=== PATIENT | male | born 1950 | race Caucasian/White ===

== ENCOUNTER 2016-12-13 17:37 | Inpatient (IN) | payer MEDICARE, OTHER ==
[2016-12-13 18:19] LABS: Hematocrit 45.4 % (42.0-52.0); Hemoglobin 14.8 gm/dL (13.5-18.0); Mean Cell Volume 92.5 fl (78-100); Mean Corpuscular Hemoglobin 30.1 pg (27-31); Mean Corpuscular Hgb Conc 32.6 g/dl (32-36); Mean Platelet Volume 10.5 fl (6.0-9.5); Neutrophil # 16.4 K/mm3 (1.3-6.0); Neutrophil % 86.1 % (42-75.0); Platelet Count 167 K/mm3 (150-450); Red Blood Count 4.91 M/mm3 (4.7-6.0); Red Cell Distribution Width 14.6 % (11.5-14.0); White Blood Count 19.1 K/mm3 (4.0-10.5)
[2016-12-13 18:26] LABS: Total Cells Counted 100
[2016-12-13 18:30] LABS: Albumin * 3.3 gm/dl (3.4-5.0); Anion Gap 11.5 mmol/L (6.8-13.8); BUN/Creatinine Ratio 17.6 (9.0-21.6); Bilirubin, Total 0.5 mg/dL (0.0-1.1); Ca. Corrected For Albumin 9.5 mg/dL (8.4-10.2); Calcium * 9.3 mg/dL (7.9-10.9); Carbon Dioxide 29.5 mmol/L (24-32.6); Total Protein 7.7 gm/dL (6.2-8.2)
--- NOTE | 2016-12-13 18:48 | ERNOTE ---
Neuro HPI ER Record Date of Service: 12/13/16 Time Seen by Provider: 12/13/16 18:40 Source: EMS, senior living records Exam Limitations: clinical condition, dementia Immunizations: IMMUNIZATION HX Immunizations Up to Date Yes History of Influenza Vaccine Yes Hx Pneumococcal Vaccination Yes Allergies/Adverse Reactions: Allergies Allergy/AdvReac Type Severity Reaction Status Date / Time No Known Allergies Allergy Verified 05/06/15 22:11 Home Medications: HOME MEDICATIONS Acetaminophen [Tylenol] 650 mg PO QID PRN 05/08/15 [Last Taken Unknown] Amlodipine Besylate/Benazepril [Lotrel 5-20 mg Capsule] 1 cap PO DAILY 05/08/15 [Last Taken Unknown] Dextran 70/Hypromellose/Pf [Artificial Tears Drops] 1 each OP QID 05/08/15 [ Last Taken 05/07/15] Docusate Sodium [Doc-Q-Lace] 100 mg PO BID 05/08/15 [Last Taken 05/06/15] Ibuprofen [Motrin] 400 mg PO BID 05/08/15 [Last Taken 05/06/15] Ibuprofen [Motrin] 800 mg PO Q8H PRN 05/08/15 [Last Taken Unknown] Ipratropium/Albuterol Sulfate [Combivent Respimat Inhal [place]] 1 puff IH QID 05/14 [Last Taken 05/06/15] Metoprolol Succinate [Toprol Xl] 200 mg PO Q12H 05/08/15 [Last Taken 05/06/15] Nystatin [Mycostatin Powder] 1 appl TP TID 05/08/15 [Last Taken Unknown] Polyethylene Glycol 3350 [Miralax] 17 gm PO DAILY 05/08/15 [Last Taken 05/06/15] Rosuvastatin Calcium [Crestor] 40 mg PO DAILY 05/08/15 [Last Taken 05/06/15] glipiZIDE [Glucotrol] 5 mg PO BID 05/08/15 [Last Taken 05/06/15] metFORMIN HCL [Glucophage] 1,000 mg PO BIDWM 05/08/15 [Last Taken 05/06/15] risperiDONE MICROSPHERES [Risperdal Consta] 25 mg IM Q14D 05/08/15 [Last Taken 05/02/15] Finasteride [Proscar] 5 mg PO DAILY 12/13/16 [Last Taken Unknown] - History of Present Illness Narrative: PT SENT HERE FROM [place] FOR FEVER AND AMS. HIS ROOM MATE WAS JUST ADMITTED HERE EARLIER TODAY FOR PAIN CONTROL AND COMFORT CARE- NOT OF AN ACUTE ILLNESS. this pt reportedly had a fever of 103.5 AND GIVEN APAP , 650 MG AT 1130. HE ARRIVES HERE [place] . [place] REPORTS THAT HE WAS DIAPHORETIC. HE IS NOT A HISTORIAN GIVEN HE HAS SHIZOPHRENIA AND VASCULAR DEMENTIA. PT SAYS HE IS HUNGRY AND WANTS A CIGARETTE AND HAS NO PAIN OR OTHER COMPLAINTS. HE IS NOT ORIENTED. Review of Systems - Review of Systems Constitutional: Present: See HPI All Other Systems: All systems neg except as marked - PT IS NOT A RELIABLE HISTORIAN GIVEN HIS DEMENTIA AND MENTAL ILLNESS. - Patient's Past Medical History Patient History - Medical: Diabetes Type 2, Dementia, Obesity, Other - SHIZOPHRENIA Patient History - Cardiac/Respiratory: Hypertension Patient History - Cancer: No Hx of Cancer Patient History - Surgical Procedures: Total Hip Replacement, Other - Social History Living Situations: senior living Smoking Status: Unknown if ever smoked Alcohol Use: none Drug Use: none - Immunizations Immunizations Up to Date: Yes Hx Pneumococcal Vaccination: Yes History of Influenza Vaccine: Yes Physical Exam - Physical Exam General Appearance: Present: wd/wn, alert - BUT NOT ORIENTED. JUST WANTS TO SLEEP AND UPSET IF I DISTURB HIM . , no apparent distress, other - OBESE SNORING MAN WITH NO FEVER AT PRESENT. O2 SATS AT 92 ON 2 L. Eye Exam: Normal inspection: bilateral Ears, Nose, Throat: Present: normal except -, dry mucous membranes Neck: Present: normal inspection, nontender Respiratory: Present: no respiratory distress, normal breath sounds, no accessory muscle use, chest nontender, lungs clear Cardiovascular/Chest: Present: regular rate, rhythm, no murmur, normal peripheral pulses Gastrointestinal/Abdominal: Present: normal bowel sounds, nontender, soft, no organomegaly, distended - LARGE OBESE ABDOMEN Back Exam: Present: normal inspection, no CVA tenderness, no vertebral tenderness Neurological Exam: Present: alert, no motor/sensory deficits, disoriented to person, disoriented to time, disoriented to place, disoriented to situation Skin Exam: Present: normal color, warm/dry Lymphatic Exam: Present: no adenopathy Darby Coma Scale - Assess Eye Opening: Spontaneous Motor: Obeys Commands Verbal: Confused - Total Coma Scale Total: 14 ED Progress - Results and Orders Patient's Lab Results:: I have reviewed the patient's lab results. Results and Orders: WBC = 19k WITH 86 SEGS, BMP NL EXCEPT GLUC = 186, LFT = NL.LACTIC IA 1.9. URINE IS + WITH > 50 RBC AND WBC AND 4 + BACTERIA. CXR = NO ACUTE CHANGE. - Vital Signs Patient's Vital Signs:: I have reviewed the patient's vital signs. Vital Signs: Vital Signs 12/13/16 17:40 Temperature 37.2 C Pulse Rate 91 Respiratory 32 H Rate O2 Sat by Pulse 92 Oximetry - EKG EKG: NSR, unchanged from - 05/06/2015 EKG read: Interp. by me - X-Ray X-Ray #1 X-Ray: chest Interpretation: Reviewed by me - NO CHANGE FROM OLD CXR. - CT/Ultrasound CT/Ultrasound Narrative: CT HEAD = NO ACUTE CHANGES / RAD. - Progress/Reassessment Chief Complaint: Altered Mental Status Plan - Plan Plan: CALLED DR POLO. SHE WILL CALL BACK, ABOUT ADMISSION. HIS LAST UTI IN 2014 WAS ECOLI SENSITIVE TO ROCEPHIN AMONG OTHERS. D/W CHRIST , SHE WILL ADMIT Departure Clinical Impression: UTI (urinary tract infection) Qualifiers: Urinary tract infection type: site unspecified Hematuria presence: with hematuria Qualified Code(s): N39.0 - Urinary tract infection, site not specified ; R31.9 - Hematuria, unspecified Altered mental status, unspecified Qualifiers: Altered mental status type: unspecified Qualified Code(s): R41.82 - Altered mental status, unspecified - Departure Referrals: Segun Lee MD [Primary Care Provider] -
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
[2016-12-13 18:58] LABS: Band 2 % (0-2.0); Lymphocyte 1 % (20-51); Monocyte 7 % (0-9); Neutrophil 90 % (42-75); Neutrophil # 17.2 K/mm3 (1.3-6.0)
[2016-12-13 19:00] LABS: Platelet Estimate Normal (NORMAL); RBC Morphology Normal (NORMAL)
[2016-12-13 19:30] LABS: Urine Appearance Cloudy; Urine Color Yellow
[2016-12-13 19:32] LABS: Urine Bilirubin Negative (NEGATIVE); Urine Blood 150 /ul (NEGATIVE); Urine Ketone Negative (NEGATIVE)
[2016-12-13 19:33] LABS: Urine Bacteria 4+; Urine Nitrite Positive (NEGATIVE); Urine Protein 100 mg/dL (NEGATIVE); Urine RBC >50 /hpf (0-5); Urine Urobilinogen Normal (NORMAL); Urine WBC >50 /hpf (0-5)
--- OUTSIDE RECORDS SUMMARY | 2016-12-13 20:45 | XMS REPORT | Continuity of Care Document ---
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
[2016-12-13] MEDS ORDERED: ACETAMINOPHEN 325 MG TABLET PO PRN (23:16)
[2016-12-13] MEDS ORDERED: IBUPROFEN 800 MG TABLET PO PRN (23:16)
[2016-12-13] MEDS ORDERED: METOPROLOL SUCCINATE 200 MG TABLET.SA PO SCH (23:30)
[2016-12-13] MEDS ORDERED: RISPERIDONE MICROSPHERES 25 MG IM SCH (23:30)
--- NOTE | 2016-12-13 23:44 | HP ---
Chief Complaint - Chief Complaint Date of Service: 12/13/16 Time of Service: 22:00 Chief Complaint: Fever, altered mental status History of Present Illness: 66 years old male adm to the hospital from [facility], with reports of fever and mental status changes off his baseline. Pt is a poor historian and due to medical condition unable to provide information. He his disoriented with decreased level of responsiveness. PMH significant for organic brain syndrome, (schizophrenia, dementia), hypertension,kidney stones, UTI and sepsis. In ER UTI seen on urinalysis Will adm and treat with IV antbx and gently hydration. On pt last adm he was (+) E-coli in urine and sensitivity to Rocephin. urine culture and blood culture pending. CT head no acute intra- cranial abnormality. CXR No acute cardio-pulmonary abnormality. WBC 19.1, BUN/ Cre 24/1.36 GFR 56. will monitor Bmp in the morning. - Patient's Past Medical History Patient History - Medical: Diabetes Type 2, Dementia, Obesity, UTI'S, Other - SCHIZOPHRENIA, DEMENTIA, ORGANIC BRAIN SYNDROME, obesity, sepsis Patient History - Cardiac/Respiratory: COPD, Hypertension, Hyperlipidemia, CPAP/ BiPAP Home Use - 3l NASAL CANNULA, Sleep Apnea Patient History - Cancer: No Hx of Cancer Patient History - Surgical Procedures: Total Hip Replacement - Left hip, Other - Right ankle repair - Family History Mother Family History - Medical: History Unknown Family History - Cardiac/Respiratory: History Unknown Family History - Cancer: History Unknown Father Family History - Medical: History Unknown Family History - Cardiac/Respiratory: History Unknown Family History - Cancer: History Unknown - Social History Living Situations: [facility] History: Hx of Schizophrenia Smoking Status: Former smoker Have you smoked in the past 12 months: Yes - quit 3 weeks ago Do you dip or chew tobacco: No Patient requests Smoking Cessation Consult: No Initiate information on Smoking Cessation: No Alcohol Use: none Drug Use: none - Immunizations Immunizations Up to Date: Yes Hx Pneumococcal Vaccination: Yes History of Influenza Vaccine: Yes Review Of Systems (GEN) - Review of Systems Generalized/Overall Review: Present: No Symptoms Reported Allergies/Adverse Reactions: Allergies Allergy/AdvReac Type Severity Reaction Status Date / Time No Known Allergies Allergy Verified 05/06/15 22:11 Home Medications: HOME MEDICATIONS Acetaminophen [Tylenol] 650 mg PO QID PRN 05/08/15 [Last Taken Unknown] Amlodipine Besylate/Benazepril [Lotrel 5-20 mg Capsule] 1 cap PO DAILY 05/08/15 [Last Taken Unknown] Dextran 70/Hypromellose/Pf [Artificial Tears Drops] 1 each OP QID 05/08/15 [ Last Taken 05/07/15] Docusate Sodium [Doc-Q-Lace] 100 mg PO BID 05/08/15 [Last Taken 05/06/15] Ibuprofen [Motrin] 400 mg PO BID 05/08/15 [Last Taken 05/06/15] Ibuprofen [Motrin] 800 mg PO Q8H PRN 05/08/15 [Last Taken Unknown] Ipratropium/Albuterol Sulfate [Combivent Respimat Inhal [place]] 1 puff IH QID 05/14 [Last Taken 05/06/15] Metoprolol Succinate [Toprol Xl] 200 mg PO Q12H 05/08/15 [Last Taken 05/06/15] Nystatin [Mycostatin Powder] 1 appl TP TID 05/08/15 [Last Taken Unknown] Polyethylene Glycol 3350 [Miralax] 17 gm PO DAILY 05/08/15 [Last Taken 05/06/15] Rosuvastatin Calcium [Crestor] 40 mg PO DAILY 05/08/15 [Last Taken 05/06/15] glipiZIDE [Glucotrol] 5 mg PO BID 05/08/15 [Last Taken 05/06/15] metFORMIN HCL [Glucophage] 1,000 mg PO BIDWM 05/08/15 [Last Taken 05/06/15] risperiDONE MICROSPHERES [Risperdal Consta] 25 mg IM Q14D 05/08/15 [Last Taken 05/02/15] Finasteride [Proscar] 5 mg PO DAILY 12/13/16 [Last Taken Unknown] Mineral Oil/Petrolatum,White [Artificial Tears Eye Ointment] 3.5 gm OP HS [Last Taken Unknown] Tamsulosin HCl 0.4 mg PO DAILY 12/13/16 [Last Taken Unknown] Exam - Exam Vital Signs: Vital Signs - Last Taken Temp 37.3 C 12/13/16 20:43 Pulse 83 12/13/16 20:43 Resp 24 H 12/13/16 20:43 BP 146/90 12/13/16 20:43 Pulse Ox 91 12/13/16 20:43 Constitutional: Present: Lethargic, Middle aged, Morbidly obese ENT Exam: Present: dry mucous membranes Eye Exam: bilateral eye: PERRL Neck: Present: non-tender, full range of motion Breasts: Present: Exam deferred Respiratory: Present: rales, rhonchi, wheezing Cardiovascular/Chest: Present: normal peripheral pulses, regular rate, rhythm, no chest tenderness, no gallop Abdomen: Present: Normal bowel sounds, soft, nontender, nondistended /Rectal: Present: Exam deferred Extremity: Present: no calf tenderness, normal capillary refill, pedal edema, swelling Skin Exam: Present: other - Right foot ulcer Neurologic: Present: depressed affect, disoriented x 3 Appearance: Present: other - organic brain syndrome Eye contact: Present: avoids eye contact, decreased rate of speech Thoughts: Present: no apparent hallucination, incoherent Diagnostic Studies: Laboratory Results WBC 19.1 K/mm3 (4.0-10.5) H 12/13/16 18:10 RBC 4.91 M/mm3 (4.7-6.0) 12/13/16 18:10 Hgb 14.8 gm/dL (13.5-18.0) 12/13/16 18:10 Hct 45.4 % (42.0-52.0) 12/13/16 18:10 MCV 92.5 fl (78-100) 12/13/16 18:10 MCH 30.1 pg (27-31) 12/13/16 18:10 MCHC 32.6 g/dl (32-36) 12/13/16 18:10 RDW 14.6 % (11.5-14.0) H 12/13/16 18:10 Plt Count 167 K/mm3 (150-450) 12/13/16 18:10 MPV 10.5 fl (6.0-9.5) H 12/13/16 18:10 Immature Gran % (Auto) 0.60 % (0.001-0.429) H 12/13/16 18:10 Immature Gran # (Auto) 0.12 K/mm3 (0.000-0.0310) H 12/13/16 18:10 Neutrophils % 86.1 % (42-75.0) H 12/13/16 18:10 Neutrophils % (Manual) 90 % (42-75) H 12/13/16 18:10 Band Neuts % (Manual) 2 % (0-2.0) 12/13/16 18:10 Lymphocytes % 4.2 % (20-51) L 12/13/16 18:10 Lymphocytes % (Manual) 1 % (20-51) L 12/13/16 18:10 Monocytes % 8.9 % (0.0-9) 12/13/16 18:10 Monocytes % (Manual) 7 % (0-9) 12/13/16 18:10 Eosinophils % 0.0 % (0.0-3.0) 12/13/16 18:10 Basophils % 0.2 % (0.0-1.0) 12/13/16 18:10 Nucleated RBC % 0.0 k/mm3 (0-1) 12/13/16 18:10 Neutrophils # 16.4 K/mm3 (1.3-6.0) H 12/13/16 18:10 Neutrophils # (Manual) 17.2 K/mm3 (1.3-6.0) H 12/13/16 18:10 Lymphocytes # 0.8 k/mm3 (1.5-3.5) L 12/13/16 18:10 Lymphocytes # (Manual) 0.2 k/mm3 (1.5-3.5) L 12/13/16 18:10 Monocytes # 1.7 k/mm3 (0.0-1.0) H 12/13/16 18:10 Monocytes # (Manual) 1.3 k/mm3 (0.0-1.0) H 12/13/16 18:10 Eosinophils # 0.0 k/mm3 (0.0-0.7) 12/13/16 18:10 Absolute Basophils 0.0 k/mm3 (0.0-0.1) 12/13/16 18:10 Platelet Estimate Normal (NORMAL) 12/13/16 18:10 RBC Morphology Normal (NORMAL) 12/13/16 18:10 Sodium 141 mmol/L (132-142) 12/13/16 18:10 Plasma Sodium 142 mmol/L (130-142) 12/13/16 18:10 Potassium 4.0 mmol/L (3.4-4.6) 12/13/16 18:10 Chloride 104 mmol/L (97-106) 12/13/16 18:10 Carbon Dioxide 29.5 mmol/L (24-32.6) 12/13/16 18:10 Anion Gap 11.5 mmol/L (6.8-13.8) 12/13/16 18:10 BUN 24 mg/dL (6-23) H D 12/13/16 18:10 Creatinine 1.36 mg/dL (0.4-1.4) D 12/13/16 18:10 Est GFR (Non-Af Amer) 56 mL/min (60-130) L D 12/13/16 18:10 BUN/Creatinine Ratio 17.6 (9.0-21.6) 12/13/16 18:10 Random Glucose 189 mg/dL (70-110) H 12/13/16 18:10 Lactic Acid, Venous 1.9 mmol/L (0.4-1.9) 12/13/16 18:00 Calcium 9.3 mg/dL (7.9-10.9) 12/13/16 18:10 Calcium Adj for Albumin 9.5 mg/dL (8.4-10.2) 12/13/16 18:10 Total Bilirubin 0.5 mg/dL (0.0-1.1) 12/13/16 18:10 AST 16 U/L (0-48) 12/13/16 18:10 ALT 25 U/L (19-67) 12/13/16 18:10 Alkaline Phosphatase 72 U/L (50-170) 12/13/16 18:10 Total Protein 7.7 gm/dL (6.2-8.2) 12/13/16 18:10 Albumin 3.3 gm/dl (3.4-5.0) L 12/13/16 18:10 Urine Color Yellow 12/13/16 18:41 Urine Appearance Cloudy 12/13/16 18:41 Urine pH 6.0 pH (5.0-7.0) 12/13/16 18:41 Ur Specific [place] 1.020 SP.GR. (1.005-1.030) 12/13/16 18:41 Urine Protein 100 mg/dL (NEGATIVE) H 12/13/16 18:41 Urine Glucose (UA) Negative mg/dL (NEGATIVE) 12/13/16 18:41 Urine Ketones Negative mg/dL (NEGATIVE) 12/13/16 18:41 Urine Blood 150 /ul (NEGATIVE) H 12/13/16 18:41 Urine Nitrate Positive (NEGATIVE) H 12/13/16 18:41 Urine Bilirubin Negative mg/dl (NEGATIVE) 12/13/16 18:41 Prot Sulfosalicylic Acd 4+ mg/dL (0) H 12/13/16 18:41 Urine Urobilinogen Normal EU/dl (NORMAL) 12/13/16 18:41 Ur Leukocyte Esterase 500 /ul (NEGATIVE) H 12/13/16 18:41 Urine RBC >50 /hpf (0-5) H 12/13/16 18:41 Urine WBC >50 /hpf (0-5) H 12/13/16 18:41 Ur Epithelial Cells 0-5 /hpf (0-5) 12/13/16 18:41 Urine Bacteria 4+ (NONE) H 12/13/16 18:41 Urine Culture Comments Culture to follow 12/13/16 18:41 CT head: No acute intra-cranial abnormality CXR: No acute cardiopulmonary abnormality Assessment/Plan - Narrative Narrative: Altered mental status :secondary to UTI vs organic brain syndrome Continue with Rocephin and monitor CBC , cmp daily UTI Plan same as #1 urine culture pending COPD Continue with supplemented oxygen and nebulizer treatments Diabetes Accu-check AC+HS and low dose SSI Resume home dose of medications Consistent carb diet Code status: Full VTe ppx: SCD GI ppx: protonix Anticipate discharge to [place] 1-3 days Time 35 minutes previous records reviewed. - Assessment/Plan (1) Altered mental status, unspecified Problem: Acute Qualifiers: Altered mental status type: unspecified Qualified Code(s): R41.82 - Altered mental status, unspecified (2) UTI (urinary tract infection) Problem: Acute Qualifiers: Urinary tract infection type: site unspecified Hematuria presence: with hematuria Qualified Code(s): N39.0 - Urinary tract infection, site not specified; R31.9 - Hematuria, unspecified (3) COPD (chronic obstructive pulmonary disease) Problem: Chronic (4) Hypertension Problem: Chronic (5) Organic brain syndrome Problem: Chronic (6) Type 2 diabetes mellitus Problem: Chronic
[2016-12-14] MEDS ORDERED: METOPROLOL SUCCINATE 50 MG TABLET.SA PO ONE (00:17)
[2016-12-14] MEDS: POLYVINYL ALCOHOL 150 DROP BTL EACHEYE SCH ×5 (00:22→21:21)
[2016-12-14] MEDS: NORMAL SALINE 1,000 ML IV PRN ×2 (00:28→16:03)
[2016-12-14] MEDS: ALBUTEROL SULFATE/IPRATROPIUM 3 ML NEBU IH SCH ×5 (01:13→18:11)
[2016-12-14 06:16] LABS: Hematocrit 43.4 % (42.0-52.0); Hemoglobin 14.3 gm/dL (13.5-18.0); Mean Cell Volume 92.1 fl (78-100); Mean Corpuscular Hemoglobin 30.4 pg (27-31); Mean Corpuscular Hgb Conc 32.9 g/dl (32-36); Mean Platelet Volume 10.8 fl (6.0-9.5); Neutrophil # 17.7 K/mm3 (1.3-6.0); Platelet Count 175 K/mm3 (150-450); Red Blood Count 4.71 M/mm3 (4.7-6.0); Red Cell Distribution Width 14.6 % (11.5-14.0); White Blood Count 20.6 K/mm3 (4.0-10.5)
[2016-12-14 06:22] LABS: Anion Gap 14.7 mmol/L (6.8-13.8); BUN/Creatinine Ratio 18.3 (9.0-21.6); Bilirubin, Total 0.4 mg/dL (0.0-1.1); Ca. Corrected For Albumin 9.3 mg/dL (8.4-10.2); Calcium * 8.8 mg/dL (7.9-10.9); Carbon Dioxide 27.7 mmol/L (24-32.6); Potassium 3.4 mmol/L (3.4-4.6); Total Protein 7.4 gm/dL (6.2-8.2)
[2016-12-14] MEDS ORDERED: ROSUVASTATIN CALCIUM 10 MG TABLET PO SCH (09:00)
[2016-12-14] MEDS ORDERED: POLYETHYLENE GLYCOL 3350 119 GM BTL PO SCH (09:00)
[2016-12-14] MEDS: NYSTATIN 15 APPL BTL TP SCH ×3 (09:05→17:47)
[2016-12-14] MEDS: glipiZIDE 5 MG TABLET PO SCH ×2 (09:05→17:47)
[2016-12-14] MEDS: FINASTERIDE 5 MG TABLET PO SCH (09:05)
[2016-12-14] MEDS: POLYETHYLENE GLYCOL 3350 119 GM BTL PO SCH (09:05)
[2016-12-14] MEDS: DOCUSATE SODIUM 100 MG CAPSULE PO SCH ×2 (09:05→21:21)
[2016-12-14] MEDS: amLODIPine BESYLATE 5 MG TABLET PO SCH (09:06)
[2016-12-14] MEDS: ENALAPRIL MALEATE 20 MG TABLET PO SCH (09:06)
[2016-12-14] MEDS: ENOXAPARIN SODIUM 40 MG/0.4 ML SYRG SC SCH (11:31)
[2016-12-14] MEDS ORDERED: METOPROLOL SUCCINATE 100 MG TABLET.SA PO SCH (12:00)
--- NOTE | 2016-12-14 15:46 | PN ---
Subjective - Date and Time Seen Date: 12/14/16 Time: 15:42 Subjective Narrative: Patient intermittently non-verbal which is apparently at baseline for him. Objective Objective Narrative: Unable to obtain ROS secondary to uncooperative patient - Vitals Vitals: Last Vital Signs Temp 38.5 C H 12/14/16 12:42 Pulse 76 12/14/16 14:38 Resp 16 12/14/16 14:38 BP 111/79 12/14/16 12:42 Pulse Ox 98 12/14/16 14:28 - Abnormal Lab Findings Abnormal Lab Findings: Abnormal Lab Results 12/14/16 12/14/16 Range/Units 05:40 05:40 WBC 20.6 H (4.0-10.5) K/mm3 RDW 14.6 H (11.5-14.0) % MPV 10.8 H (6.0-9.5) fl Immature Gran % (Auto) 0.90 H (0.001-0.429) % Immature Gran # (Auto) 0.18 H (0.000-0.0310) K/mm3 Neutrophils % 86.0 H (42-75.0) % Lymphocytes % 4.4 L (20-51) % Neutrophils # 17.7 H (1.3-6.0) K/mm3 Lymphocytes # 0.9 L (1.5-3.5) k/mm3 Monocytes # 1.8 H (0.0-1.0) k/mm3 Sodium 143 H (132-142) mmol/L Plasma Sodium 145 H (130-142) mmol/L Anion Gap 14.7 H (6.8-13.8) mmol/L BUN 26 H (6-23) mg/dL Creatinine 1.42 H (0.4-1.4) mg/dL Est GFR (Non-Af Amer) 53 L (60-130) mL/min Random Glucose 215 H (70-110) mg/dL Albumin 3.0 L (3.4-5.0) gm/dl - Exam Constitutional: Present: Alert, No distress, Morbidly obese. Absent: Cooperative ENT Exam: Present: dry mucous membranes Respiratory: Present: other - Difficult to thoroughly assess secondary to body habitus but patient noted to have coarse breath sounds bilaterally Cardiovascular/Chest: Present: other - Diminished heart sounds secondary to body habitus so difficult to thoroughly assess; however, RRR and no murmurs noted Abdomen: Present: soft, obese Extremity: Present: pedal edema Eye contact: Present: avoids eye contact, refused to answer Assessment/Plan Plan Narrative: Continue IV Rocephin. Await final urine C&S and de-escalate antibiotics when able. Patient can likely transfer back to the [facility] within the next 1-2 days once the urine culture results are finalized. - Problems/Diagnosis (1) UTI (urinary tract infection) Problem: Acute Qualifiers: Urinary tract infection type: acute cystitis Hematuria presence: with hematuria Qualified Code(s): N30.01 - Acute cystitis with hematuria
[2016-12-14] MEDS: TAMSULOSIN HCL 0.4 MG CAP.SR.24H PO SCH (17:50)
[2016-12-14] MEDS: LANOLIN/MIN OIL/PETROLAT,WHT 3.5 APPL TUBE OP SCH (21:20)
[2016-12-14] MEDS: ROSUVASTATIN CALCIUM 10 MG TABLET PO SCH (21:21)
[2016-12-14] MEDS: METOPROLOL SUCCINATE 100 MG TABLET.SA PO SCH (21:22)
[2016-12-15] MEDS: NORMAL SALINE 1,000 ML IV PRN ×2 (05:12→19:15)
[2016-12-15 05:55] LABS: Hematocrit 40.1 % (42.0-52.0); Hemoglobin 12.8 gm/dL (13.5-18.0); Mean Cell Volume 93.7 fl (78-100); Mean Corpuscular Hemoglobin 29.9 pg (27-31); Mean Corpuscular Hgb Conc 31.9 g/dl (32-36); Mean Platelet Volume 10.7 fl (6.0-9.5); Neutrophil # 10.8 K/mm3 (1.3-6.0); Neutrophil % 81.6 % (42-75.0); Platelet Count 157 K/mm3 (150-450); Red Blood Count 4.28 M/mm3 (4.7-6.0); Red Cell Distribution Width 15.1 % (11.5-14.0); White Blood Count 13.2 K/mm3 (4.0-10.5)
[2016-12-15] MEDS ORDERED: MAGNESIUM HYDROXIDE 30 ML UDC PO ONE (06:01)
[2016-12-15] MEDS: ALBUTEROL SULFATE/IPRATROPIUM 3 ML NEBU IH SCH ×4 (06:03→18:11)
[2016-12-15 06:09] LABS: Anion Gap 10.9 mmol/L (6.8-13.8); BUN/Creatinine Ratio 24.8 (9.0-21.6); Calcium * 8.5 mg/dL (7.9-10.9); Carbon Dioxide 29.9 mmol/L (24-32.6); Estimated Creat Clear 59.8; Potassium 3.8 mmol/L (3.4-4.6)
[2016-12-15] MEDS ORDERED: MAGNESIUM HYDROXIDE 30 ML UDC ONE (08:29)
[2016-12-15] MEDS: ENALAPRIL MALEATE 20 MG TABLET PO SCH (08:30)
[2016-12-15] MEDS: amLODIPine BESYLATE 5 MG TABLET PO SCH (08:30)
[2016-12-15] MEDS: DOCUSATE SODIUM 100 MG CAPSULE PO SCH ×2 (08:30→20:00)
[2016-12-15] MEDS: POLYVINYL ALCOHOL 150 DROP BTL EACHEYE SCH ×4 (08:30→20:00)
[2016-12-15] MEDS: glipiZIDE 5 MG TABLET PO SCH ×2 (08:31→17:37)
[2016-12-15] MEDS: FINASTERIDE 5 MG TABLET PO SCH (08:31)
[2016-12-15] MEDS: METOPROLOL SUCCINATE 100 MG TABLET.SA PO SCH ×2 (08:31→20:00)
[2016-12-15] MEDS: NYSTATIN 15 APPL BTL TP SCH ×3 (08:31→17:35)
[2016-12-15] MEDS: POLYETHYLENE GLYCOL 3350 119 GM BTL PO SCH (08:32)
[2016-12-15] MEDS: ENOXAPARIN SODIUM 40 MG/0.4 ML SYRG SC SCH (11:14)
[2016-12-15] MEDS ORDERED: ERTAPENEM SODIUM 1,000 MG in NORMAL SALINE 100 ML IV SCH (12:45)
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
[2016-12-15] MEDS: TAMSULOSIN HCL 0.4 MG CAP.SR.24H PO SCH (17:36)
[2016-12-15] MEDS: LANOLIN/MIN OIL/PETROLAT,WHT 3.5 APPL TUBE OP SCH (20:00)
[2016-12-15] MEDS: ROSUVASTATIN CALCIUM 10 MG TABLET PO SCH (20:00)
[2016-12-16 05:49] LABS: Hematocrit 37.6 % (42.0-52.0); Hemoglobin 12.3 gm/dL (13.5-18.0); Mean Cell Volume 92.6 fl (78-100); Mean Corpuscular Hemoglobin 30.3 pg (27-31); Mean Corpuscular Hgb Conc 32.7 g/dl (32-36); Mean Platelet Volume 10.3 fl (6.0-9.5); Platelet Count 156 K/mm3 (150-450); Red Blood Count 4.06 M/mm3 (4.7-6.0); Red Cell Distribution Width 14.6 % (11.5-14.0); White Blood Count 8.4 K/mm3 (4.0-10.5)
[2016-12-16] MEDS: ALBUTEROL SULFATE/IPRATROPIUM 3 ML NEBU IH SCH (06:05)
[2016-12-16 06:06] LABS: Total Cells Counted 100
[2016-12-16 06:10] LABS: Albumin * 2.4 gm/dl (3.4-5.0); Anion Gap 8.6 mmol/L (6.8-13.8); BUN/Creatinine Ratio 23.9 (9.0-21.6); Bilirubin, Total 0.3 mg/dL (0.0-1.1); Ca. Corrected For Albumin 9.6 mg/dL (8.4-10.2); Calcium * 8.6 mg/dL (7.9-10.9); Carbon Dioxide 31.1 mmol/L (24-32.6); Potassium 3.7 mmol/L (3.4-4.6); Total Protein 6.3 gm/dL (6.2-8.2)
[2016-12-16 06:20] LABS: Atypical (Reactive) Lymph 1 % (0-2); Dohle Bodies Trace; Eosinophil 2 % (0-3); Lymphocyte 27 % (20-51); Monocyte 6 % (0-9); Neutrophil 64 % (42-75); Neutrophil # 5.4 K/mm3 (1.3-6.0); Platelet Estimate Normal (NORMAL)
[2016-12-16] MEDS ORDERED: glipiZIDE 5 MG TABLET PO SCH (07:00)
[2016-12-16 07:24] VITALS: BP 147/91
[2016-12-16] MEDS ORDERED: DIPHTH,PERTUSS(ACELL),TET VAC 0.5 ML VIAL IM ONE (07:32)
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
[2016-12-16] MEDS: POLYVINYL ALCOHOL 150 DROP BTL EACHEYE SCH (08:36)
[2016-12-16] MEDS: POLYETHYLENE GLYCOL 3350 119 GM BTL PO SCH (08:37)
[2016-12-16] MEDS: ENALAPRIL MALEATE 20 MG TABLET PO SCH (08:38)
[2016-12-16] MEDS: FINASTERIDE 5 MG TABLET PO SCH (08:39)
[2016-12-16] MEDS: DOCUSATE SODIUM 100 MG CAPSULE PO SCH (08:39)
[2016-12-16] MEDS: METOPROLOL SUCCINATE 100 MG TABLET.SA PO SCH (08:40)
[2016-12-16] MEDS: amLODIPine BESYLATE 5 MG TABLET PO SCH (08:41)
[2016-12-16] MEDS: NYSTATIN 15 APPL BTL TP SCH (08:42)
== END 2016-12-16 09:10 | DRG 690 ==
LOC: ER 17:37 → MS 20:41
PROVIDERS: ADMIT Nurse Practitioner; ATTEND Allergy & Immunology
DX: N39.0 Urinary tract infection, site not specified (principal); B96.20 Unspecified Escherichia coli [E. coli] as the cause of diseases classified elsewhere; R41.82 Altered mental status, unspecified; E11.9 Type 2 diabetes mellitus without complications; I10 Essential (primary) hypertension; J44.9 Chronic obstructive pulmonary disease, unspecified; E78.5 Hyperlipidemia, unspecified; F09 Unspecified mental disorder due to known physiological condition; Z16.12 Extended spectrum beta lactamase (ESBL) resistance; T25.221A Burn of second degree of right foot, initial encounter; T31.0 Burns involving less than 10% of body surface; X08.8XXA Exposure to other specified smoke, fire and flames, initial encounter

== ENCOUNTER 2017-02-05 07:44 | Day surgery (SDC) | payer MEDICARE, OTHER ==
[~2017-02-05 07:44] MED LIST: CIPROFLOXACIN HCL 500 MG TABLET PO PRN
--- OUTSIDE RECORDS SUMMARY | 2017-02-05 07:47 | XMS REPORT | Continuity of Care Document ---
:1950 Author Organization [facility] ([facility]) Address [address] [place] [address] Phone [phone] Care Team Providers Name Role Phone Segun Perez Primary Care Provider [phone] Source Comments This disclosure is being made pursuant to the Care Everywhere program, applicable federal and state laws, and may not contain all informaitonavailable regarding this patient.[facility] ([facility]) Active Allergies and Adverse Reactions No [...] Recent Encounters Date Type Specialty Providers Description 01/14/2017 Office Visit Ophthalmology - Jessica Munguia, Dx: Blepharospasm Specialty (Primary Dx) 01/14/2017 Office Visit Ophthalmology Jessica Hutton, Subj: Upcoming Appt Specialty MD Reminder Social History Tobacco Use Types Packs/Day Years [...] 1.803 m (5' 11") 11/04/2012 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
[2017-02-05] MEDS ORDERED: RINGERS SOLUTION,LACTATED 1,000 ML IV ONE ×2 (08:30→09:15)
[2017-02-05] MEDS ORDERED: CIPROFLOXACIN LACTATE/D5W 400 MG/200 ML BAG IV PRN (08:40)
[2017-02-05 11:00] VITALS: BP 136/94
== END 2017-02-05 07:45 | disposition home or self-care (01) ==
LOC: AMB 07:44
PROVIDERS: ATTEND Urology
PROC: 0WHR8YZ Insertion of Other Device into Genitourinary Tract, Via Natural or Artificial Opening Endoscopic (ICD-10-PCS; 2017-02-05)
PROC: 0T778DZ Dilation of Left Ureter with Intraluminal Device, Via Natural or Artificial Opening Endoscopic (ICD-10-PCS; principal; 2017-02-05 09:30)
DX: N13.1 Hydronephrosis with ureteral stricture, not elsewhere classified (principal); N13.5 Crossing vessel and stricture of ureter without hydronephrosis; Z87.440 Personal history of urinary (tract) infections; I10 Essential (primary) hypertension; E11.9 Type 2 diabetes mellitus without complications; E78.5 Hyperlipidemia, unspecified; J44.9 Chronic obstructive pulmonary disease, unspecified; D64.9 Anemia, unspecified; N40.1 Benign prostatic hyperplasia with lower urinary tract symptoms; N13.8 Other obstructive and reflux uropathy; F17.210 Nicotine dependence, cigarettes, uncomplicated; E66.9 Obesity, unspecified; Z68.41 Body mass index [BMI] 40.0-44.9, adult

== ENCOUNTER 2017-02-12 11:50 | Day surgery (SDC) | payer MEDICARE, OTHER ==
[~2017-02-12 11:50] MED LIST changes: -CIPROFLOXACIN HCL 500 MG TABLET PO PRN; +NORMAL SALINE 1,000 ML IV PRN
--- OUTSIDE RECORDS SUMMARY | 2017-02-12 11:54 | XMS REPORT | Continuity of Care Document ---
:1950 Author Organization [facility] ([facility]) Address [address] [place] [address] Phone [phone] Care Team Providers Name Role Phone Segun Perez Primary Care Provider [phone] Source Comments This disclosure is being made pursuant to the Care Everywhere program, applicable federal and state laws, and may not contain all informaitonavailable regarding this patient.[facility] ([facility]) Active Allergies and Adverse Reactions No Known [...] 1.803 m (5' 11") 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
[2017-02-12] MEDS ORDERED: RINGERS SOLUTION,LACTATED 1,000 ML IV ONE ×2 (12:45→14:41)
[2017-02-12] MEDS ORDERED: NORMAL SALINE 1,000 ML IV ONE (12:45)
[2017-02-12 16:39] VITALS: BP 132/62
== END 2017-02-12 11:51 | disposition home or self-care (01) ==
LOC: AMB 11:50
PROVIDERS: ATTEND Urology
PROC: 0WHR8YZ Insertion of Other Device into Genitourinary Tract, Via Natural or Artificial Opening Endoscopic (ICD-10-PCS; 2017-02-12)
PROC: 0T778DZ Dilation of Left Ureter with Intraluminal Device, Via Natural or Artificial Opening Endoscopic (ICD-10-PCS; principal; 2017-02-12 14:05)
DX: N13.1 Hydronephrosis with ureteral stricture, not elsewhere classified (principal); Z87.440 Personal history of urinary (tract) infections; E11.9 Type 2 diabetes mellitus without complications; I10 Essential (primary) hypertension; J44.9 Chronic obstructive pulmonary disease, unspecified; E78.5 Hyperlipidemia, unspecified; N40.1 Benign prostatic hyperplasia with lower urinary tract symptoms; N13.8 Other obstructive and reflux uropathy; F17.210 Nicotine dependence, cigarettes, uncomplicated; E66.9 Obesity, unspecified; Z68.41 Body mass index [BMI] 40.0-44.9, adult

== ENCOUNTER 2017-02-13 13:00 | Inpatient (IN) | payer MEDICARE, OTHER ==
[2017-02-13] MEDS ORDERED: ALBUTEROL SULFATE 2.5 MG/3 ML VIAL.NEB IH ONE (13:17)
[2017-02-13] MEDS ORDERED: ALBUTEROL SULFATE 2.5 MG/0.5 ML VIAL.NEB IH ONE (13:29)
[2017-02-13 13:43] LABS: Hematocrit 38.9 % (42.0-52.0); Hemoglobin 12.1 gm/dL (13.5-18.0); Mean Cell Volume 94.6 fl (78-100); Mean Corpuscular Hemoglobin 29.4 pg (27-31); Mean Corpuscular Hgb Conc 31.1 g/dl (32-36); Mean Platelet Volume 9.4 fl (6.0-9.5); Neutrophil # 6.4 K/mm3 (1.3-6.0); Neutrophil % 67.4 % (42-75.0); Platelet Count 183 K/mm3 (150-450); Red Blood Count 4.11 M/mm3 (4.7-6.0); Red Cell Distribution Width 15.3 % (11.5-14.0); White Blood Count 9.4 K/mm3 (4.0-10.5)
[2017-02-13 14:04] LABS: Albumin * 2.8 gm/dl (3.4-5.0); Anion Gap 7.3 mmol/L (6.8-13.8); BUN/Creatinine Ratio 13.1 (9.0-21.6); Bilirubin, Total 0.2 mg/dL (0.0-1.1); CRP 1.8 mg/dL (0.0-0.9); Ca. Corrected For Albumin 9.1 mg/dL (8.4-10.2); Calcium * 8.5 mg/dL (7.9-10.9); Potassium 4.3 mmol/L (3.4-4.6); Total Protein 7.2 gm/dL (6.2-8.2)
--- OUTSIDE RECORDS SUMMARY | 2017-02-13 14:06 | XMS REPORT | Continuity of Care Document ---
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
[2017-02-13 14:07] LABS: Troponin I 0.019 ng/ml (0.00-0.10)
[2017-02-13 14:34] LABS: Urine Color Yellow
[2017-02-13 14:35] LABS: Urine Appearance Clear; Urine Bacteria TRACE; Urine Bilirubin Negative (NEGATIVE); Urine Blood 250 /ul (NEGATIVE); Urine Ketone Negative (NEGATIVE); Urine Nitrite Negative (NEGATIVE); Urine Protein 100 mg/dL (NEGATIVE); Urine Urobilinogen Normal (NORMAL)
--- NOTE | 2017-02-13 15:21 | ERNOTE ---
Neuro HPI ER Record Date of Service: 02/13/17 Presenting Symptoms: weakness, confusion Time Seen by Provider: 02/13/17 13:10 Source: EMS, senior care records Exam Limitations: other - patient sleepy however rouses to stimulation Immunizations: IMMUNIZATION HX Immunizations Up to Date Yes History of Influenza Vaccine Yes Hx Pneumococcal Vaccination Yes Allergies/Adverse Reactions: Allergies Allergy/AdvReac Type Severity Reaction Status Date / Time No Known Allergies Allergy Verified 02/12/17 12:18 Home Medications: HOME MEDICATIONS Acetaminophen [Tylenol] 650 mg PO QID PRN 05/08/15 [Last Taken Unknown] Amlodipine Besylate/Benazepril [Lotrel 5-20 mg Capsule] 1 cap PO DAILY 05/08/15 [Last Taken Unknown] Docusate Sodium [Doc-Q-Lace] 100 mg PO BID PRN 05/08/15 [Last Taken 05/06/15] Ipratropium/Albuterol Sulfate [Combivent Respimat Inhal [place]] 1 puff IH QID 05/14 [Last Taken 05/06/15] Metoprolol Succinate [Toprol Xl] 200 mg PO BID 05/08/15 [Last Taken 05/06/15] Polyethylene Glycol 3350 [Miralax] 17 gm PO DAILY 05/08/15 [Last Taken 05/06/15] Rosuvastatin Calcium [Crestor] 40 mg PO DAILY 05/08/15 [Last Taken 05/06/15] metFORMIN HCL [Glucophage] 1,000 mg PO BIDWM 05/08/15 [Last Taken 05/06/15] risperiDONE MICROSPHERES [Risperdal Consta] 25 mg IM Q14D 05/08/15 [Last Taken 05/02/15] Finasteride [Proscar] 5 mg PO DAILY 12/13/16 [Last Taken Unknown] Mineral Oil/Petrolatum,White [Artificial Tears Eye Ointment] 1 appl OP HS PRN [Last Taken Unknown] Tamsulosin HCl 0.4 mg PO DAILY 12/13/16 [Last Taken Unknown] glipiZIDE [Glucotrol] 5 mg PO DAILY #1 tablet 12/16/16 [Last Taken Unknown] Ibuprofen [Motrin] 800 mg PO Q8H PRN 02/04/17 [Last Taken Unknown] Polyvinyl Alcohol [Artificial Tears] 1 drop OP BID PRN 02/04/17 [Last Taken Unknown] - History of Present Illness Narrative: patient had lithotripsy yesterday and has been sleepy and difficult to roouse since procedure Onset: gradual onset Severity: moderate - Character of Deficits New weakness: Present: general (diffuse) Additional Deficits: Present: decrease ability to walk Baseline Cognition: Present: alert but disoriented to time Baseline Gait: Present: walks only w/ assistance Associated Symptoms: Reports: altered mental status, trouble concentrating Prior Treament: Reports: recently seen, treated by physician, other - lithotryspsy yesterday Review of Systems - Review of Systems Constitutional: Present: weakness, malaise, decreased activity level EYE: Present: no symptoms reported ENT: Present: no symptoms reported Respiratory: Present: shortness of breath, orthopnea, wheezing Cardiology: Present: no symptoms reported Gastrointestinal/Abdominal: Present: no symptoms reported Genitourinary: Present: no symptoms reported Musculoskeletal: Present: no symptoms reported Skin: Present: no symptoms reported Neurological: Present: no symptoms reported Endocrine: Present: no symptoms reported - Patient's Past Medical History Patient History - Medical: Diabetes Type 2, Dementia, Kidney stone, Obesity, UTI 'S, Other Patient History - Cardiac/Respiratory: COPD, Hypertension, Hyperlipidemia, CPAP/ BiPAP Home Use, Sleep Apnea Patient History - Cancer: No Hx of Cancer Patient History - Surgical Procedures: Total Hip Replacement, Other Patient History - Other: None - Family History Mother Family History - Medical: History Unknown Family History - Cardiac/Respiratory: History Unknown Family History - Cancer: History Unknown Father Family History - Medical: History Unknown Family History - Cardiac/Respiratory: History Unknown Family History - Cancer: History Unknown - Social History Living Situations: senior care Abuse History: No History of abuse Psych History: Hx of Anxiety, Hx of Depression, Hx of Schizophrenia Smoking Status: Former smoker Have you smoked in the past 12 months: No Do you dip or chew tobacco: No Alcohol Use: none Drug Use: none - Immunizations Immunizations Up to Date: Yes Hx Pneumococcal Vaccination: Yes History of Influenza Vaccine: Yes Physical Exam - Physical Exam General Appearance: Present: lethargic, obese, sleeping/easy to arouse Eye Exam: Normal inspection: bilateral, PERRL: bilateral, EOMI: bilateral Ears, Nose, Throat: Present: normal ENT inspection Neck: Present: normal inspection, nontender Respiratory: Present: decreased breath sounds, rales, rhonchi Cardiovascular/Chest: Present: regular rate, rhythm, no murmur, normal peripheral pulses Peripheral Pulses: N=norm/S=strong/W=weak/B=bound/A=absent: Carotid (R): Normal , Carotid (L): Normal, Radial (R): Normal, Radial (L): Normal, Femoral (R): Normal, Femoral (L): Normal, Dorsalis-pedis (R): Normal, Dorsalis-pedis (L): Normal Gastrointestinal/Abdominal: Present: normal bowel sounds, nontender, nondistended, soft, no organomegaly Back Exam: Present: normal inspection, normal range of motion, no CVA tenderness , no vertebral tenderness Extremity Exam: Present: normal inspection, non-tender, normal range of motion, no edema Neurological Exam: Present: disoriented to person, disoriented to time, disoriented to place, disoriented to situation Skin Exam: Present: normal color, warm/dry Lymphatic Exam: Present: no adenopathy ED Progress - Results and Orders Patient's Lab Results:: I have reviewed the patient's lab results. - Vital Signs Patient's Vital Signs:: I have reviewed the patient's vital signs. Vital Signs: Vital Signs 02/13/17 02/13/17 02/13/17 13:11 13:19 13:44 Temperature 37.3 C Pulse Rate 74 74 74 Respiratory 21 H 16 20 Rate Blood Pressure 142/69 147/69 O2 Sat by Pulse 94 93 93 Oximetry 02/13/17 02/13/17 02/13/17 13:46 14:13 14:38 Temperature Pulse Rate 73 73 73 Respiratory 20 20 20 Rate Blood Pressure 147/69 100/61 O2 Sat by Pulse 91 92 91 Oximetry 02/13/17 15:02 Temperature 37.3 C Pulse Rate 71 Respiratory 20 Rate Blood Pressure 95/60 O2 Sat by Pulse 92 Oximetry - EKG EKG: NSR EKG read: Interp. by me - Progress/Reassessment Chief Complaint: Altered Mental Status Progress:: Improved - Transfer of Care Expected Disposition: Admit - case discussed with dr claudy kahn whoaccepts patient to admit Departure Clinical Impression: Altered mental status, Chronic respiratory failure - Departure Disposition: [facility] Condition: Serious Referrals: Segun Lee MD [Primary Care Provider] -
--- OUTSIDE RECORDS SUMMARY | 2017-02-13 15:24 | XMS REPORT | Continuity of Care Document ---
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
[2017-02-13] MEDS ORDERED: LEVOFLOXACIN/D5W 500 MG/100 ML BAG IV SCH (15:30)
--- NOTE | 2017-02-13 17:00 | HP ---
Chief Complaint - Chief Complaint Date of Service: 02/13/17 Time of Service: 16:54 Chief Complaint: altered mental status History of Present Illness: Vince Whitaker, is a 67-year-old white male, patient of Dr. Perez, with previous medical history of dementia, mental retardation, hypertension, hyperlipidemia, diabetes mellitus type 2, who was admitted on 02/13/2017 because of altered mental status. The patient is a senior living resident who had undergone lithotripsy yesterday and since coming back from the hospital has been more lethargic and confused as per [facility] personnel. The patient was then brought to our emergency room. His EKG showed normal sinus rhythm, his chest x- ray shows a rotated view with questionable pneumonitis ( unofficial reading), his CBC and CMP were essentially within normal limits. His urinalysis showed possible urinary tract infection. On examination of the patient, the patient would open his eyes and follow instructions for a very short time and then goes back to sleep. He has no gross motor/sensory deficit although his face shows some asymmetry but could be due to one side of his face, with a large tongue, being pressed against the pillow. - Patient's Past Medical History Patient History - Medical: Diabetes Type 2, Dementia, Kidney stone, Obesity, UTI 'S, Other Patient History - Cardiac/Respiratory: COPD, Hypertension, Hyperlipidemia, CPAP/ BiPAP Home Use, Sleep Apnea Patient History - Cancer: No Hx of Cancer Patient History - Surgical Procedures: Total Hip Replacement, Other Patient History - Other: None - Family History Mother Family History - Medical: History Unknown Family History - Cardiac/Respiratory: History Unknown Family History - Cancer: History Unknown Father Family History - Medical: History Unknown Family History - Cardiac/Respiratory: History Unknown Family History - Cancer: History Unknown - Social History Living Situations: senior living Abuse History: No History of abuse Psych History: Hx of Anxiety, Hx of Depression, Hx of Schizophrenia Smoking Status: Former smoker Have you smoked in the past 12 months: No Do you dip or chew tobacco: No Patient requests Smoking Cessation Consult: No Initiate information on Smoking Cessation: No Alcohol Use: none Drug Use: none - Immunizations Immunizations Up to Date: Yes Hx Pneumococcal Vaccination: Yes History of Influenza Vaccine: Yes Review Of Systems (GEN) - Review of Systems Generalized/Overall Review: Present: No Symptoms Reported EENTM: Present: No Symptoms Reported Respiratory: Present: No Symptoms Reported Cardiac: Present: No Symptoms Reported Abdominal: Present: No Symptoms Reported Genitourinary: Present: No Symptoms Reported Musculoskeletal: Present: No Symptoms Reported Neurological: Present: No Symptoms Reported Skin: Present: No Symptoms Reported Misc: All systems neg except as marked - Patient would open his eyes and then falls asleep again Immunizations: IMMUNIZATION HX Immunizations Up to Date Yes History of Influenza Vaccine Yes Hx Pneumococcal Vaccination Yes Allergies/Adverse Reactions: Allergies Allergy/AdvReac Type Severity Reaction Status Date / Time No Known Allergies Allergy Verified 02/13/17 16:28 Home Medications: HOME MEDICATIONS Acetaminophen [Tylenol] 650 mg PO QID PRN 05/08/15 [Last Taken Unknown] Amlodipine Besylate/Benazepril [Lotrel 5-20 mg Capsule] 1 cap PO DAILY 05/08/15 [Last Taken Unknown] Docusate Sodium [Doc-Q-Lace] 100 mg PO BID PRN 05/08/15 [Last Taken 05/06/15] Metoprolol Succinate [Toprol Xl] 200 mg PO BID 05/08/15 [Last Taken 05/06/15] Polyethylene Glycol 3350 [Miralax] 17 gm PO DAILY 05/08/15 [Last Taken 05/06/15] Rosuvastatin Calcium [Crestor] 40 mg PO DAILY 05/08/15 [Last Taken 05/06/15] metFORMIN HCL [Glucophage] 1,000 mg PO BIDWM 05/08/15 [Last Taken 05/06/15] risperiDONE MICROSPHERES [Risperdal Consta] 25 mg IM Q14D 05/08/15 [Last Taken 05/02/15] Finasteride [Proscar] 5 mg PO DAILY 12/13/16 [Last Taken Unknown] Mineral Oil/Petrolatum,White [Artificial Tears Eye Ointment] 1 appl OP HS PRN [Last Taken Unknown] Tamsulosin HCl 0.4 mg PO DAILY 12/13/16 [Last Taken Unknown] glipiZIDE [Glucotrol] 5 mg PO DAILY #1 tablet 12/16/16 [Last Taken Unknown] Polyvinyl Alcohol [Artificial Tears] 1 drop OP QID PRN 02/04/17 [Last Taken Unknown] Albuterol Sulfate/Ipratropium [Duoneb 2.5-0.5MG/3ML Soln] 3 ml IH QID 02/13/17 [ Last Taken Unknown] Nystatin [Mycostatin Powder] 15 gm TP TID 02/13/17 [Last Taken Unknown] Exam - Exam Vital Signs: Vital Signs - Last Taken Temp 36.9 C 02/13/17 16:06 Pulse 74 02/13/17 16:25 Resp 24 H 02/13/17 16:06 BP 130/71 02/13/17 16:06 Pulse Ox 96 02/13/17 16:06 Constitutional: Present: Cooperative - but would fall asleep again, Somnolent, Morbidly obese ENT Exam: Present: hearing grossly normal Eye Exam: bilateral eye: normal inspection, PERRL, EOMI Neck: Present: supple Back Exam: Present: no CVA tenderness Breasts: Present: Exam deferred Respiratory: Present: decreased breath sounds, crackles, No wheezing Cardiovascular/Chest: Present: regular rate, rhythm, no JVD, no murmur Abdomen: Present: Normal bowel sounds, soft, nontender, obese Extremity: Present: no pedal edema Neurologic: Present: applied exercise physiologist II-XII nml as tested - not able to test accurately as patinet would go to sleep, no motor/sensory deficits - moved his toes when asked to, squeezed my fingers when asked to, weak residence hall director but bilateral Diagnostic Studies: Microbiology 02/13/17 15:30 Sputum Culture - Preliminary Expectorate Sputum Laboratory Results WBC 9.4 K/mm3 (4.0-10.5) 02/13/17 13:35 RBC 4.11 M/mm3 (4.7-6.0) L 02/13/17 13:35 Hgb 12.1 gm/dL (13.5-18.0) L 02/13/17 13:35 Hct 38.9 % (42.0-52.0) L 02/13/17 13:35 MCV 94.6 fl (78-100) 02/13/17 13:35 MCH 29.4 pg (27-31) 02/13/17 13:35 MCHC 31.1 g/dl (32-36) L 02/13/17 13:35 RDW 15.3 % (11.5-14.0) H 02/13/17 13:35 Plt Count 183 K/mm3 (150-450) 02/13/17 13:35 MPV 9.4 fl (6.0-9.5) 02/13/17 13:35 Immature Gran % (Auto) 0.80 % (0.001-0.429) H 02/13/17 13:35 Immature Gran # (Auto) 0.08 K/mm3 (0.000-0.0310) H 02/13/17 13:35 Neutrophils % 67.4 % (42-75.0) 02/13/17 13:35 Lymphocytes % 21.5 % (20-51) 02/13/17 13:35 Monocytes % 8.7 % (0.0-9) 02/13/17 13:35 Eosinophils % 1.3 % (0.0-3.0) 02/13/17 13:35 Basophils % 0.3 % (0.0-1.0) 02/13/17 13:35 Nucleated RBC % 0.0 k/mm3 (0-1) 02/13/17 13:35 Neutrophils # 6.4 K/mm3 (1.3-6.0) H 02/13/17 13:35 Lymphocytes # 2.0 k/mm3 (1.5-3.5) 02/13/17 13:35 Monocytes # 0.8 k/mm3 (0.0-1.0) 02/13/17 13:35 Eosinophils # 0.1 k/mm3 (0.0-0.7) 02/13/17 13:35 Absolute Basophils 0.0 k/mm3 (0.0-0.1) 02/13/17 13:35 pCO2 54.7 mmHg (35.0-48.0) H 02/13/17 14:40 pO2 72.0 mmHg (83.0-108.0) L 02/13/17 14:40 HCO3 28.0 mmol/L (21.0-28.0) 02/13/17 14:40 Total CO2 29.7 mmol/L (19.0-24.0) H 02/13/17 14:40 Base Excess 1.1 mmol/L (-2.0-3.0) 02/13/17 14:40 ABG pH 7.33 (7.35-7.45) L 02/13/17 14:40 ABG O2 Sat (Measured) 93.1 % (94.0-98.0) L 02/13/17 14:40 Sodium 140 mmol/L (132-142) 02/13/17 13:35 Plasma Sodium 141 mmol/L (130-142) 02/13/17 13:35 Potassium 4.3 mmol/L (3.4-4.6) 02/13/17 13:35 Chloride 103 mmol/L (97-106) 02/13/17 13:35 Carbon Dioxide 34.0 mmol/L (24-32.6) H 02/13/17 13:35 Anion Gap 7.3 mmol/L (6.8-13.8) 02/13/17 13:35 BUN 17 mg/dL (6-23) 02/13/17 13:35 Creatinine 1.30 mg/dL (0.4-1.4) 02/13/17 13:35 Est GFR (Non-Af Amer) 59 mL/min (60-130) L 02/13/17 13:35 BUN/Creatinine Ratio 13.1 (9.0-21.6) 02/13/17 13:35 Random Glucose 158 mg/dL (70-110) H 02/13/17 13:35 Calcium 8.5 mg/dL (7.9-10.9) 02/13/17 13:35 Calcium Adj for Albumin 9.1 mg/dL (8.4-10.2) 02/13/17 13:35 Total Bilirubin 0.2 mg/dL (0.0-1.1) 02/13/17 13:35 AST 13 U/L (0-48) 02/13/17 13:35 ALT 21 U/L (19-67) 02/13/17 13:35 Alkaline Phosphatase 67 U/L (50-170) 02/13/17 13:35 Troponin I 0.019 ng/ml (0.00-0.10) 02/13/17 13:35 C-Reactive Prot, Quant 1.8 mg/dL (0.0-0.9) H 02/13/17 13:35 B-Natriuretic Peptide 1206 pg/mL (5-350) H 02/13/17 13:35 Total Protein 7.2 gm/dL (6.2-8.2) 02/13/17 13:35 Albumin 2.8 gm/dl (3.4-5.0) L 02/13/17 13:35 Procalcitonin Less than 0.05 ng/mL (0.05-0.50) L 02/13/17 13:35 Urine Color Yellow 02/13/17 14:12 Urine Appearance Clear 02/13/17 14:12 Urine pH 6.0 pH (5.0-7.0) 02/13/17 14:12 Ur Specific Mobile 1.030 SP.GR. (1.005-1.030) 02/13/17 14:12 Urine Protein 100 mg/dL (NEGATIVE) H 02/13/17 14:12 Urine Glucose (UA) Negative mg/dL (NEGATIVE) 02/13/17 14:12 Urine Ketones Negative mg/dL (NEGATIVE) 02/13/17 14:12 Urine Blood 250 /ul (NEGATIVE) H 02/13/17 14:12 Urine Nitrate Negative (NEGATIVE) 02/13/17 14:12 Urine Bilirubin Negative mg/dl (NEGATIVE) 02/13/17 14:12 Prot Sulfosalicylic Acd 4+ mg/dL (0) H 02/13/17 14:12 Urine Urobilinogen Normal EU/dl (NORMAL) 02/13/17 14:12 Ur Leukocyte Esterase 25 /ul (NEGATIVE) H 02/13/17 14:12 Urine RBC 10-25 /hpf (0-5) H 02/13/17 14:12 Urine WBC 5-10 /hpf (0-5) H 02/13/17 14:12 Ur Epithelial Cells None seen /hpf (0-5) 02/13/17 14:12 Urine Bacteria Trace (NONE) 02/13/17 14:12 Urine Culture Comments Culture to follow 02/13/17 14:12 Assessment/Plan - Assessment/Plan (1) Altered mental status Assessment: rule out due to infection ( UTI vs Bronchitis/Pneumonitis) vs lingering effects of anesthesia or narcotic pain medication. will try to get anesthesia records from his lithotripsy. will do UDS. consider giving narcan or romazicon pending results. will get CTS of the head w/o contrast. Problem: Acute Qualifiers: Altered mental status type: somnolence Qualified Code(s): R40.0 - Somnolence (2) Acute respiratory failure Assessment: likely due to BASE LOADER depression ( will try to get anesthesia records ) vs Acute bronchitis/Pneumonitis on chronic (COPD). ABG shows acute respiratory acidosis with NAG MAC likely RTA . will get urine for electrolytes. will continue with IV antibiotics and restart BiPap. Problem: Acute Qualifiers: Respiratory failure complication: hypoxia and hypercapnia Qualified Code(s) : J96.01 - Acute respiratory failure with hypoxia; J96.02 - Acute respiratory failure with hypercapnia (3) UTI (urinary tract infection) Assessment: will continue with IV rocephin and await C & S Problem: Acute Qualifiers: Urinary tract infection type: acute cystitis Hematuria presence: with hematuria Qualified Code(s): N30.01 - Acute cystitis with hematuria (4) COPD (chronic obstructive pulmonary disease) Problem: Chronic Qualifiers: COPD type: chronic bronchitis (5) Hyperlipidemia Problem: Chronic Qualifiers: Hyperlipidemia type: unspecified Qualified Code(s): E78.5 - Hyperlipidemia , unspecified (6) Hypertension Problem: Chronic Qualifiers: Hypertension type: essential hypertension Qualified Code(s): I10 - Essential (primary) hypertension (7) Type 2 diabetes mellitus Problem: Chronic
[2017-02-13] MEDS ORDERED: POLYVINYL ALCOHOL 150 DROP BTL OP PRN ×2 (17:32→17:38)
[2017-02-13] MEDS ORDERED: METHYLPREDNISOLONE SOD SUCC/PF 125 MG/2 ML VIAL IV ONE (17:35)
[2017-02-13] MEDS: ALBUTEROL SULFATE/IPRATROPIUM 3 ML NEBU IH SCH (18:20)
[2017-02-13 20:46] LABS: Cocaine Ur Negative (NEGATIVE); Urine Barbiturate Negative (NEGATIVE); Urine Benzodiazepines Negative (NEGATIVE); Urine Opiates Negative (NEGATIVE); Urine PCP Negative (NEGATIVE); Urine THC Negative (NEGATIVE)
[2017-02-13] MEDS ORDERED: ACETAMINOPHEN 325 MG TABLET PO PRN (21:11)
[2017-02-13] MEDS ORDERED: DOCUSATE SODIUM 100 MG CAPSULE PO PRN (21:11)
[2017-02-13] MEDS ORDERED: METOPROLOL SUCCINATE 200 MG TABLET.SA PO SCH (21:15)
[2017-02-13] MEDS ORDERED: METOPROLOL SUCCINATE 50 MG TABLET.SA PO ONE (21:46)
[2017-02-14] MEDS: ALBUTEROL SULFATE/IPRATROPIUM 3 ML NEBU IH SCH ×4 (06:18→18:09)
--- NOTE | 2017-02-14 08:17 | PN ---
Subjective - Date and Time Seen Date: 02/14/17 Time: 08:07 Subjective Narrative: Better today. UA abnormal, but culture no growth so far. Elevated CO2 but better today. Previously had echo in 2014, but report so far not available. BNP high on this admission. Objective - Review of Systems Generalized/Overall Review: Reports: Malaise EENTM: Reports: No Symptoms Reported Respiratory: Reports: No Symptoms Reported Cardiac: Reports: No Symptoms Reported Abdominal: Reports: No Symptoms Reported Genitourinary Symptoms: Reports: No Symptoms Reported Musculoskeletal Complaints: Reports: No Symptoms Reported Neurological: Reports: No Symptoms Reported Skin: Reports: No Symptoms Reported Endocrine: Reports: No Symptoms Reported Misc: All systems neg except as marked - Vitals Vitals: Last Vital Signs Selected Entries 02/14/17 07:45 Temperature 36.4 C L Temperature Temporal Artery Source Scan Pulse Rate 70 Respiratory 20 Rate Blood Pressure 139/74 Blood Pressure Supine Position O2 Sat by Pulse 98 Oximetry Oxygen Delivery Nasal Cannula Method Oxygen Flow 1.5 Rate - Abnormal Lab Findings Abnormal Lab Findings: Abnormal Lab Results 02/13/17 Range/Units 19:25 pCO2 52.4 H (35.0-48.0) mmHg pO2 73.5 L (83.0-108.0) mmHg Total CO2 28.9 H (19.0-24.0) mmol/L ABG pH 7.33 L (7.35-7.45) ABG O2 Sat (Measured) 93.7 L (94.0-98.0) % - Exam Constitutional: Present: Alert, Cooperative, No distress ENT Exam: Present: normal ENT inspection, hearing grossly normal Neck: Present: normal inspection Respiratory: Present: normal breath sounds, no respiratory distress Cardiovascular/Chest: Present: regular rate, rhythm, no chest tenderness Abdomen: Present: Normal bowel sounds, soft, nontender, nondistended, no rebound tenderness, no hepatospenomegaly, no masses Extremity: Present: normal range of motion, non-tender, normal inspection, no pedal edema, no calf tenderness Skin Exam: Present: normal color, warm/dry, no cyanosis Neurologic: Present: alert Appearance: Present: appropriate appearance, neat Eye contact: Present: cooperative Assessment/Plan Plan Narrative: Adjust supplemental oxygen. Not tolerating BiPap well...........we will see if he really needs it. Track down 2015 echo report. Follow labs. Await culture. ABGs in an hour. MRI brain tomorrow. EEG. Antibiotics. - Problems/Diagnosis (1) Hypercapnia Problem: Acute (2) Elevated brain natriuretic peptide (BNP) level Problem: Acute (3) Altered mental status Problem: Acute Qualifiers: Altered mental status type: somnolence Qualified Code(s): R40.0 - Somnolence (4) Chronic respiratory failure Problem: Chronic Qualifiers: (5) UTI (urinary tract infection) Problem: Acute Qualifiers: Urinary tract infection type: acute cystitis Hematuria presence: with hematuria Qualified Code(s): N30.01 - Acute cystitis with hematuria (6) Hyperlipidemia Problem: Chronic Qualifiers: Hyperlipidemia type: unspecified Qualified Code(s): E78.5 - Hyperlipidemia , unspecified (7) Hypertension Problem: Chronic Qualifiers: Hypertension type: essential hypertension Qualified Code(s): I10 - Essential (primary) hypertension (8) Organic brain syndrome Problem: Chronic (9) Schizophrenia Problem: Chronic Qualifiers: Schizophrenia type: unspecified Qualified Code(s): F20.9 - Schizophrenia, unspecified (10) Sleep apnea Problem: Chronic (11) Type 2 diabetes mellitus Problem: Chronic
[2017-02-14] MEDS ORDERED: TAMSULOSIN HCL 0.4 MG CAP.SR.24H PO SCH (09:00)
[2017-02-14] MEDS ORDERED: ROSUVASTATIN CALCIUM 10 MG TABLET PO SCH (09:00)
[2017-02-14] MEDS ORDERED: POLYETHYLENE GLYCOL 3350 119 GM BTL PO SCH (09:00)
[2017-02-14] MEDS ORDERED: amLODIPine BESYLATE 5 MG TABLET PO SCH (09:00)
[2017-02-14] MEDS: glipiZIDE 5 MG TABLET PO SCH (09:17)
[2017-02-14] MEDS: BENAZEPRIL HCL 10 MG TABLET PO SCH (09:17)
[2017-02-14] MEDS: FINASTERIDE 5 MG TABLET PO SCH (09:18)
[2017-02-14] MEDS: amLODIPine BESYLATE 5 MG TABLET PO SCH (09:18)
[2017-02-14] MEDS: NYSTATIN 15 APPL BTL TP SCH ×3 (09:18→16:47)
[2017-02-14] MEDS: METOPROLOL SUCCINATE 100 MG TABLET.SA PO SCH ×2 (09:18→21:06)
[2017-02-14] MEDS ORDERED: POLYVINYL ALCOHOL 150 DROP BTL OP PRN (11:25)
[2017-02-14] MEDS: TAMSULOSIN HCL 0.4 MG CAP.SR.24H PO SCH (19:16)
[2017-02-14] MEDS: ROSUVASTATIN CALCIUM 10 MG TABLET PO SCH (21:05)
[2017-02-15] MEDS: ALBUTEROL SULFATE/IPRATROPIUM 3 ML NEBU IH SCH ×4 (05:59→18:30)
[2017-02-15 06:02] LABS: Hemoglobin 12.2 gm/dL (13.5-18.0); Mean Cell Volume 91.4 fl (78-100); Mean Corpuscular Hemoglobin 30.1 pg (27-31); Mean Platelet Volume 9.9 fl (6.0-9.5); Neutrophil # 7.1 K/mm3 (1.3-6.0); Neutrophil % 68.1 % (42-75.0); Platelet Count 193 K/mm3 (150-450); Red Blood Count 4.05 M/mm3 (4.7-6.0); Red Cell Distribution Width 14.7 % (11.5-14.0); White Blood Count 10.4 K/mm3 (4.0-10.5)
[2017-02-15 06:13] LABS: Anion Gap 9.6 mmol/L (6.8-13.8); Calcium * 8.8 mg/dL (7.9-10.9); Carbon Dioxide 32.3 mmol/L (24-32.6); Estimated Creat Clear 77.8; Potassium 3.9 mmol/L (3.4-4.6)
[2017-02-15 06:54] LABS: BUN/Creatinine Ratio 22.1 (9.0-21.6)
[2017-02-15] MEDS: POLYETHYLENE GLYCOL 3350 119 GM BTL PO SCH (09:12)
[2017-02-15] MEDS: glipiZIDE 5 MG TABLET PO SCH (09:13)
[2017-02-15] MEDS: NYSTATIN 15 APPL BTL TP SCH ×3 (09:13→17:48)
[2017-02-15] MEDS: FINASTERIDE 5 MG TABLET PO SCH (09:13)
[2017-02-15] MEDS: BENAZEPRIL HCL 10 MG TABLET PO SCH (09:14)
[2017-02-15] MEDS: METOPROLOL SUCCINATE 100 MG TABLET.SA PO SCH ×2 (09:14→20:07)
[2017-02-15] MEDS: amLODIPine BESYLATE 5 MG TABLET PO SCH (09:14)
[2017-02-15] MEDS: ENOXAPARIN SODIUM 40 MG/0.4 ML SYRG SC SCH (09:18)
--- NOTE | 2017-02-15 16:29 | PN ---
Subjective - Date and Time Seen Date: 02/15/17 Time: 16:26 Subjective Narrative: Better today. UA abnormal, but culture no growth so far. Elevated CO2 but better today. Objective - Review of Systems Generalized/Overall Review: Reports: Malaise EENTM: Reports: No Symptoms Reported Respiratory: Reports: No Symptoms Reported Cardiac: Reports: No Symptoms Reported Abdominal: Reports: No Symptoms Reported Genitourinary Symptoms: Reports: No Symptoms Reported Musculoskeletal Complaints: Reports: No Symptoms Reported Neurological: Reports: No Symptoms Reported Skin: Reports: No Symptoms Reported Endocrine: Reports: No Symptoms Reported Misc: All systems neg except as marked - Vitals Vitals: Last Vital Signs Selected Entries 02/15/17 15:00 Temperature 36.7 C Temperature Tympanic Source Pulse Rate 60 Respiratory 18 Rate Respiratory Normal Depth Respiratory Normal Effort Respiratory Normal Pattern Blood Pressure 125/77 Blood Pressure Supine Position O2 Sat by Pulse 98 Oximetry Oxygen Delivery Room Air Method - Abnormal Lab Findings Abnormal Lab Findings: Abnormal Lab Results 02/15/17 02/15/17 Range/Units 05:45 05:45 RBC 4.05 L (4.7-6.0) M/mm3 Hgb 12.2 L (13.5-18.0) gm/dL Hct 37.0 L (42.0-52.0) % RDW 14.7 H (11.5-14.0) % MPV 9.9 H (6.0-9.5) fl Immature Gran % (Auto) 0.50 H (0.001-0.429) % Immature Gran # (Auto) 0.05 H (0.000-0.0310) K/mm3 Neutrophils # 7.1 H (1.3-6.0) K/mm3 BUN/Creatinine Ratio 22.1 H (9.0-21.6) Random Glucose 125 H (70-110) mg/dL - Exam Constitutional: Present: Alert ENT Exam: Present: normal ENT inspection Neck: Present: normal inspection Respiratory: Present: normal breath sounds, no respiratory distress Cardiovascular/Chest: Present: regular rate, rhythm, no murmur Abdomen: Present: Normal bowel sounds, soft, nontender, nondistended, no rebound tenderness, no hepatospenomegaly, no masses, obese Extremity: Present: normal inspection, no pedal edema Skin Exam: Present: normal color, warm/dry, no cyanosis Neurologic: Present: alert Appearance: Present: appropriate appearance, neat Eye contact: Present: cooperative Assessment/Plan Plan Narrative: Follow labs. Await final culture. probably back to snf tomorrow. - Problems/Diagnosis (1) Hypercapnia Problem: Acute (2) Elevated brain natriuretic peptide (BNP) level Problem: Acute (3) Altered mental status Problem: Acute Qualifiers: Altered mental status type: somnolence Qualified Code(s): R40.0 - Somnolence (4) Chronic respiratory failure Problem: Chronic Qualifiers: (5) UTI (urinary tract infection) Problem: Acute Qualifiers: Urinary tract infection type: acute cystitis Hematuria presence: with hematuria Qualified Code(s): N30.01 - Acute cystitis with hematuria (6) Hyperlipidemia Problem: Chronic Qualifiers: Hyperlipidemia type: unspecified Qualified Code(s): E78.5 - Hyperlipidemia , unspecified (7) Hypertension Problem: Chronic Qualifiers: Hypertension type: essential hypertension Qualified Code(s): I10 - Essential (primary) hypertension (8) Organic brain syndrome Problem: Chronic (9) Schizophrenia Problem: Chronic Qualifiers: Schizophrenia type: unspecified Qualified Code(s): F20.9 - Schizophrenia, unspecified (10) Sleep apnea Problem: Chronic (11) Type 2 diabetes mellitus Problem: Chronic
[2017-02-15] MEDS: TAMSULOSIN HCL 0.4 MG CAP.SR.24H PO SCH (18:27)
[2017-02-15] MEDS: ROSUVASTATIN CALCIUM 10 MG TABLET PO SCH (20:07)
[2017-02-16 05:38] LABS: Hematocrit 39.3 % (42.0-52.0); Hemoglobin 12.9 gm/dL (13.5-18.0); Mean Cell Volume 90.6 fl (78-100); Mean Corpuscular Hemoglobin 29.7 pg (27-31); Mean Corpuscular Hgb Conc 32.8 g/dl (32-36); Mean Platelet Volume 9.9 fl (6.0-9.5); Neutrophil # 4.9 K/mm3 (1.3-6.0); Neutrophil % 63.1 % (42-75.0); Platelet Count 193 K/mm3 (150-450); Red Blood Count 4.34 M/mm3 (4.7-6.0); Red Cell Distribution Width 14.8 % (11.5-14.0); White Blood Count 7.7 K/mm3 (4.0-10.5)
[2017-02-16 05:49] LABS: Anion Gap 10.8 mmol/L (6.8-13.8); BUN/Creatinine Ratio 18.4 (9.0-21.6); Carbon Dioxide 31.9 mmol/L (24-32.6); Estimated Creat Clear 82.6; Potassium 3.7 mmol/L (3.4-4.6)
[2017-02-16] MEDS: ALBUTEROL SULFATE/IPRATROPIUM 3 ML NEBU IH SCH ×3 (06:01→14:33)
[2017-02-16] MEDS ORDERED: SULFAMETHOXAZOLE/TRIMETHOPRIM 1 TAB TABLET PO STA (07:11)
[2017-02-16] MEDS: ENOXAPARIN SODIUM 40 MG/0.4 ML SYRG SC SCH (07:27)
[2017-02-16] MEDS: POLYETHYLENE GLYCOL 3350 119 GM BTL PO SCH (09:02)
[2017-02-16] MEDS: NYSTATIN 15 APPL BTL TP SCH ×2 (09:04→13:40)
[2017-02-16] MEDS: BENAZEPRIL HCL 10 MG TABLET PO SCH (09:04)
[2017-02-16] MEDS: glipiZIDE 5 MG TABLET PO SCH (09:04)
[2017-02-16] MEDS: FINASTERIDE 5 MG TABLET PO SCH (09:04)
[2017-02-16] MEDS: METOPROLOL SUCCINATE 100 MG TABLET.SA PO SCH (09:04)
[2017-02-16] MEDS: amLODIPine BESYLATE 5 MG TABLET PO SCH (09:04)
--- NOTE | 2017-02-16 11:50 | DS ---
(1) Hypercapnia Problem: Resolved (2) Elevated brain natriuretic peptide (BNP) level Problem: Acute (3) Altered mental status Diagnosis(s): Due to hypoxia and hypercapnia due to acute on chronic respiratory failure Problem: Resolved Qualifiers: Altered mental status type: somnolence Qualified Code(s): R40.0 - Somnolence (4) Chronic respiratory failure Problem: Chronic Qualifiers: Respiratory failure complication: hypoxia and hypercapnia Qualified Code(s) : J96.11 - Chronic respiratory failure with hypoxia; J96.12 - Chronic respiratory failure with hypercapnia (5) UTI (urinary tract infection) Problem: Ruled-out Qualifiers: Urinary tract infection type: acute cystitis Hematuria presence: with hematuria Qualified Code(s): N30.01 - Acute cystitis with hematuria (6) Hyperlipidemia Problem: Chronic Qualifiers: Hyperlipidemia type: unspecified Qualified Code(s): E78.5 - Hyperlipidemia , unspecified (7) Hypertension Problem: Chronic Qualifiers: Hypertension type: essential hypertension Qualified Code(s): I10 - Essential (primary) hypertension (8) Organic brain syndrome Problem: Chronic (9) Schizophrenia Problem: Chronic Qualifiers: Schizophrenia type: unspecified Qualified Code(s): F20.9 - Schizophrenia, unspecified (10) Sleep apnea Diagnosis(s): Refuses to uses positive airway pressure device. Problem: Chronic Qualifiers: Sleep apnea type: unspecified type Qualified Code(s): G47.30 - Sleep apnea , unspecified (11) Type 2 diabetes mellitus Problem: Chronic (12) Bronchitis due to Staphylococcus aureus Diagnosis(s): MRSA Problem: Acute (13) MRSA (methicillin resistant Staphylococcus aureus) infection Diagnosis(s): From sputum Problem: Acute (14) Diastolic dysfunction Diagnosis(s): [facility] 03/14/2015 Problem: Acute Description of Stay: Following admission, we treated him for a UTI, based on his UA results and the fact he had just had a lithotripsy. Urine culture grew no bacteria ultimately. We tried PAP breathing assistance, but he fought the treatment the entire time her was here, and his last gases off pap were good. Ultimately, his sputum grew MRSA. Today, his demeanor is cheerful and he is doing great, so we will return him to the residential. Procedures Performed: none Discharge Disposition: [facility] Disposition: [facility] Condition: Good Discharge Activity: Activity as tolerated Discharge Diet: Consistent carbs Discharge Level of Care:: SNF - Correction Referrals: Segun Lee MD [Primary Care Provider] - Problem Oriented Discharge Instructions to Patient/Family: Chronic Respiratory Failure, Acute Bronchitis, [id number] Prescriptions (Any new or edited meds): Sulfamethoxazole/Trimethoprim [Bactrim Ds] 1 tab PO BID #20 tab Complete Home Medications List: Complete Home Medication List: Acetaminophen [Tylenol] 650 mg PO QID PRN 05/08/15 Amlodipine Besylate/Benazepril [Lotrel 5-20 mg Capsule] 1 cap PO DAILY 05/08/15 Docusate Sodium [Doc-Q-Lace] 100 mg PO BID PRN 05/08/15 Metoprolol Succinate [Toprol Xl] 200 mg PO BID 05/08/15 Polyethylene Glycol 3350 [Miralax] 17 gm PO DAILY 05/08/15 Rosuvastatin Calcium [Crestor] 40 mg PO DAILY 05/08/15 metFORMIN HCL [Glucophage] 1,000 mg PO BIDWM 05/08/15 risperiDONE MICROSPHERES [Risperdal Consta] 25 mg IM Q14D 05/08/15 Finasteride [Proscar] 5 mg PO DAILY 12/13/16 Mineral Oil/Petrolatum,White [Artificial Tears Eye Ointment] 1 appl OP HS PRN Tamsulosin HCl 0.4 mg PO DAILY 12/13/16 glipiZIDE [Glucotrol] 5 mg PO DAILY #1 tablet 12/16/16 Polyvinyl Alcohol [Artificial Tears] 1 drop OP QID PRN 02/04/17 Albuterol Sulfate/Ipratropium [Duoneb 2.5-0.5MG/3ML Soln] 3 ml IH QID 02/13/17 Nystatin [Mycostatin Powder] 15 gm TP TID 02/13/17 Sulfamethoxazole/Trimethoprim [Bactrim Ds] 1 tab PO BID #20 tab 02/16/17
[2017-02-16 15:48] VITALS: BP 123/67
[2017-02-24] MEDS ORDERED: RISPERDAL CONSTA 25 MG IM SCH (09:00)
== END 2017-02-16 16:05 | DRG 190 ==
LOC: ER 13:00 → MS 15:19
PROVIDERS: ADMIT Internal Medicine; ATTEND Allergy & Immunology
PROC: 4A033R1 Measurement of Arterial Saturation, Peripheral, Percutaneous Approach (ICD-10-PCS; principal; 2017-02-13)
DX: J44.0 Chronic obstructive pulmonary disease with (acute) lower respiratory infection (principal); I50.31 Acute diastolic (congestive) heart failure; J96.12 Chronic respiratory failure with hypercapnia; J20.8 Acute bronchitis due to other specified organisms; B95.62 Methicillin resistant Staphylococcus aureus infection as the cause of diseases classified elsewhere; R40.0 Somnolence; E11.9 Type 2 diabetes mellitus without complications; I10 Essential (primary) hypertension; E78.5 Hyperlipidemia, unspecified; F20.9 Schizophrenia, unspecified; F79 Unspecified intellectual disabilities

== ENCOUNTER 2017-02-19 07:31 | Day surgery (SDC) | payer MEDICARE, OTHER ==
[~2017-02-19 07:31] MED LIST changes: +CIPROFLOXACIN HCL 500 MG TABLET PO PRN; -NORMAL SALINE 1,000 ML IV PRN
[2017-02-19] MEDS ORDERED: LIDOCAINE HCL 10 APPL CARTRIDGE TP ONE (08:40)
[2017-02-19 10:47] VITALS: BP 143/75
== END 2017-02-19 07:32 | disposition home or self-care (01) ==
LOC: AMB 07:31
PROVIDERS: ATTEND Urology
PROC: 0TP98DZ Removal of Intraluminal Device from Ureter, Via Natural or Artificial Opening Endoscopic (ICD-10-PCS; principal; 2017-02-19 08:35)
DX: N13.30 Unspecified hydronephrosis (principal); Z87.440 Personal history of urinary (tract) infections; I10 Essential (primary) hypertension; D64.9 Anemia, unspecified; E11.9 Type 2 diabetes mellitus without complications; E78.5 Hyperlipidemia, unspecified; J44.9 Chronic obstructive pulmonary disease, unspecified; E66.9 Obesity, unspecified; Z68.41 Body mass index [BMI] 40.0-44.9, adult; F17.210 Nicotine dependence, cigarettes, uncomplicated

== ENCOUNTER 2019-01-09 17:09 | Inpatient (IN) ==
[2019-01-09] MEDS ORDERED: LABETALOL HCL 5 MG/ML VIAL IV ONE (17:35)
[2019-01-09 17:36] LABS: Hematocrit 41.8 % (42.0-52.0); Hemoglobin 13.5 gm/dL (13.5-18.0); Mean Cell Volume 92.7 fl (78-100); Mean Corpuscular Hemoglobin 29.9 pg (27-31); Mean Corpuscular Hgb Conc 32.3 g/dl (32-36); Mean Platelet Volume 9.5 fl (8-11.3); Neutrophil # 6.4 K/mm3 (1.3-6.0); Neutrophil % 75.1 % (42-75.0); Platelet Count 180 K/mm3 (150-450); Red Blood Count 4.51 M/mm3 (4.7-6.0); Red Cell Distribution Width 14.2 % (11.5-14.0); White Blood Count 8.5 K/mm3 (4.0-10.5)
[2019-01-09 17:45] LABS: Prothrombin Time (Patient) 10.5 Seconds (9.1-10.7)
--- NOTE | 2019-01-09 17:45 | ERNOTE ---
Neuro HPI ER Record Presenting Symptoms: other Time Seen by Provider: 01/09/19 17:09 Source: retirement records Exam Limitations: clinical condition Immunizations: IMMUNIZATION HX Immunizations Up to Date Yes History of Influenza Vaccine Yes Hx Pneumococcal Vaccination Yes Allergies/Adverse Reactions: Allergies Allergy/AdvReac Type Severity Reaction Status Date / Time No Known Allergies Allergy Verified 12/16/18 08:49 Home Medications: HOME MEDICATIONS Acetaminophen [Tylenol] 650 mg PO QID PRN 05/08/15 [Last Taken Unknown] Polyethylene Glycol 3350 [Miralax] 17 gm PO DAILY 05/08/15 [Last Taken 05/06/15] metFORMIN HCL [Glucophage] 1,000 mg PO BIDWM 05/08/15 [Last Taken 05/06/15] risperiDONE MICROSPHERES [Risperdal Consta] 25 mg IM Q14D 05/08/15 [Last Taken 05/02/15] Finasteride [Proscar] 5 mg PO DAILY 12/13/16 [Last Taken Unknown] Tamsulosin HCl 0.4 mg PO DAILY 12/13/16 [Last Taken Unknown] Nystatin [Mycostatin Powder] 15 gm TP TID PRN 02/13/17 [Last Taken Unknown] Cholecalciferol (Vitamin D3) [Vitamin D3] 5,000 unit PO DAILY 02/22/18 [Last Taken Unknown] Lisinopril [Zestril] 40 mg PO BID 02/22/18 [Last Taken Unknown] Magnesium Hydroxide [Milk Of Magnesia] 30 ml PO DAILY PRN 02/22/18 [Last Taken Unknown] Rosuvastatin Calcium [Crestor] 10 mg PO HS 02/22/18 [Last Taken Unknown] Cod Liver Oil/Zinc Oxide [Desitin] 1 appl TP TID PRN 02/23/18 [Last Taken Unknown] Albuterol Sulfate/Ipratropium [Duoneb 2.5-0.5MG/3ML Soln] 3 ml IH QID #100 nebu 02/24/18 [Last Taken Unknown] acetaminophen 325 mg/10.15 mL oral solution 650 mg PO QID ml 03/10/18 [Last Taken Unknown] Docusate Sodium [Doc-Q-Lace] 100 mg PO BID PRN 06/14/18 [Last Taken Unknown] guaiFENesin/DEXTROMETHORPHAN [Robafen-Dm Syrup] 10 ml PO Q4H PRN 10/16/18 [Last Taken Unknown] metoprolol succinate ER 100 mg tablet,extended release 24 hr 100 mg PO BID #60 tab 07/27/18 [Last Taken Unknown] Insulin Detemir [Levemir] 21 units SC HS 01/09/19 [Last Taken Unknown] Insulin Lispro [Humalog] 7 unit SUB-Q AC 01/09/19 [Last Taken Unknown] - History of Present Illness Narrative: Patient is a resident at the [facility]. He was last seen during lunch around 13:30 nurses found him slumped over on the couch, incontinent of urine, and unrespo nsive around 16:00, he had a temperature of 101 and elevated blood pressure at the [facility] His past history is significant for DM, HTN, dementia, and schizophrenia Date (Duration): 01/09/19 Time (Timing): 16:00 Last Date Known Well: 01/09/19 Last Time Known Well: 13:30 Onset: cannot confirm onset - Character of Deficits Baseline Cognition: Present: alert but disoriented to time Review of Systems - Narrative Narrative: limited due to condition Medical History (Updated 01/09/19 @ 19:20 by Mary Santos MD) 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 Sepsis (Resolved) Alcohol abuse Anemia Dysphagia Essential (primary) hypertension Gait disturbance Obesity Pain in ankle Paranoid schizophrenia Psychotic disorder with hallucinations Tinea unguium Vascular dementia Weakness Social History: Preferred Language Occitan Smoking Status Current every day smoker Abuse History No History of abuse Psych History Hx of Anxiety,Hx of Depression,Hx of Schizophrenia (Last Updated 12/16/18 @ 15:55 by Abdirahman Cast DO) No Social History Section defined Physical Exam - Physical Exam General Appearance: Present: wd/wn, no apparent distress, lethargic, obese Head Exam: Present: normal inspection, no evidence of injury Eye Exam: Other: right - right eye not closing completely Ears, Nose, Throat: Present: normal except - - yellow drainage on both nares, dry mucous membranes Neck: Present: normal inspection, nontender, supple Respiratory: Present: no respiratory distress, no accessory muscle use, lungs clear, decreased breath sounds, other - snoring respirations, improved after positioning and inserting nasal trumpet Cardiovascular/Chest: Present: regular rate, rhythm, no murmur Gastrointestinal/Abdominal: Present: normal bowel sounds, nontender, nondistended, soft Extremity Exam: Present: no edema Neurological Exam: Present: facial droop - faint right sided, other Skin Exam: Present: normal color, warm/dry Cuong Coma Scale - Assess Eye Opening: To Pain Motor: Localizes to Pain Verbal: Incomprehensible - Total Coma Scale Total: 9 Progress - Results and Orders Patient's Lab Results:: I have reviewed the patient's lab results. - Vital Signs Patient's Vital Signs:: I have reviewed the patient's vital signs. - EKG EKG #1 EKG: NSR, other - no acute changes EKG read: Interp. by me - X-Ray X-Ray #1 X-Ray: chest - LLL infiltrate Interpretation: Discd w/ radiologist - CT/Ultrasound CT/Ultrasound Narrative: CT head: no acute - Progress/Reassessment Progress Note-Subjective: 01/09/19 17:[address] with radiologist 01/09/19 17:45 patient responding to voice 01/09/19 18:07 patient responding to voice, faintly squeezes right hand when asked 01/09/19 18:47 O2 sats in low 90's on 1liter, patient very lethargic with poor effort, O2 sats dropping to 88% briefly improving with cough patient opens eyes to voice but doesn't speak, GCS discussed CXR with radiologist possible LLL infiltrate PSI 96 points, class IV 01/09/19 19:[address] Morales, okay to admit for pneumonia and start rocephin and zithromax, get ABG Departure Clinical Impression: Pneumonia Qualifiers: Pneumonia type: due to unspecified organism Laterality: left Lung location: lower lobe of lung Qualified Code(s): J18.1 - Lobar pneumonia, unspecified organism - Departure Disposition: Still a patient Condition: Stable
[2019-01-09 17:46] LABS: INR 1.06 INR (0.92-1.08); Partial Thrombolplastin Time 25.7 Seconds (24-32)
[2019-01-09 17:47] LABS: Albumin * 3.3 gm/dl (3.4-5.0); Anion Gap 10.3 mmol/L (6.8-13.8); BUN/Creatinine Ratio 11.1 (9.0-21.6); Bilirubin, Total 0.3 mg/dL (0.0-1.1); Ca. Corrected For Albumin 9.6 mg/dL (8.4-10.2); Calcium * 9.4 mg/dL (7.9-10.9); Carbon Dioxide 31.5 mmol/L (24-32.6); Potassium 3.8 mmol/L (3.4-4.6); Total Protein 7.7 gm/dL (6.2-8.2)
[2019-01-09] MEDS ORDERED: cefTRIAXone SODIUM 1,000 MG/100 ML BAG IV ONE (18:54)
[2019-01-09] MEDS ORDERED: ACETAMINOPHEN 650 MG SUPP.RECT RC ONE (19:17)
[2019-01-09] MEDS ORDERED: AZITHROMYCIN 500 MG in DEXTROSE 5 % IN WATER 250 ML IV SCH ×2 (20:00)
[2019-01-09] MEDS ORDERED: ALBUTEROL SULFATE 2.5 MG/0.5 ML VIAL.NEB IH PRN (20:07)
[2019-01-09 20:39] LABS: Urine Bilirubin Negative (NEGATIVE); Urine Ketone Negative (NEGATIVE); Urine Nitrite Negative (NEGATIVE); Urine Protein 15 mg/dL (NEGATIVE); Urine Urobilinogen Normal (NORMAL)
[2019-01-09 20:49] LABS: Urine Appearance Clear (CLEAR); Urine Bacteria TRACE; Urine Blood 5 /ul (NEGATIVE); Urine Color Yellow; Urine RBC 0-5 /hpf (0-5)
--- NOTE | 2019-01-09 22:40 | HP ---
Chief Complaint - Chief Complaint Date of Service: 01/09/19 Time of Service: 22:41 Chief Complaint: chnage in mental status History of Present Illness: Vince Whitaker is a 68-year-old white male, patient of Dr. Cast, resident of the [facility], who was admitted on 01/09/2019 for altered mental status. He has a past medical history of vascular dementia, paranoid schizophrenia, COPD, hypertension, diabetes mellitus type 2, hyperlipidemia and mental disability. The patient normally ambulates with a walker independently. I am not able to get a history from [facility] and my history of present illness is based on the emergency room notes and his previous admissions. As per emergency room notes he was [facility] by [facility] personnel during lunch around 1:30 in the afternoon. They later found him slumped over the couch unresponsive around 4:00 PM. He was incontinent of urine and was febrile with a temperature of 101 and elevated blood pressure. He was then brought to the emergency room where a head CT scan was done which showed no acute intracranial process. His EKG showed normal sinus rhythm. His chest x-ray showed a left lower lobe consolidation likely pneumonia. His white blood cell count was normal. The patient remained obtunded and slightly hypoxic in the emergency room he was started on 2 to 3 L of nasal cannula. IV Rocephin was started and azithromycin the patient was admitted for further evaluation and treatment. 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 Sepsis (Resolved) Alcohol abuse Anemia Dysphagia Essential (primary) hypertension Gait disturbance Obesity Pain in ankle Paranoid schizophrenia Psychotic disorder with hallucinations Tinea unguium Vascular dementia Weakness Social History: Patient Lives/Resources [facility] Utilized Preferred Language Ugandan Do you have any rastafari or No cultural preference? Smoking Status Current every day smoker Have you smoked in the past 12 Yes months Abuse History No History of abuse Psych History Hx of Anxiety,Hx of Depression,Hx of Schizophrenia Alcohol Use none Drug Use none (Last Updated 12/16/18 @ 15:55 by Abdirahman Cast DO) No Social History Section defined Review Of Systems (GEN) - Review of Systems Additional Comments: inobtainable due to mental status change Immunizations: IMMUNIZATION HX Immunizations Up to Date Yes History of Influenza Vaccine More Information Required Hx Pneumococcal Vaccination More Information Required Allergies/Adverse Reactions: Allergies Allergy/AdvReac Type Severity Reaction Status Date / Time No Known Allergies Allergy Verified 12/16/18 08:49 Home Medications: HOME MEDICATIONS Polyethylene Glycol 3350 [Miralax] 17 gm PO DAILY 05/08/15 [Last Taken 05/06/15] metFORMIN HCL [Glucophage] 1,000 mg PO BIDWM 05/08/15 [Last Taken 05/06/15] risperiDONE MICROSPHERES [Risperdal Consta] 25 mg IM Q14D 05/08/15 [Last Taken 05/02/15] Finasteride [Proscar] 5 mg PO DAILY 12/13/16 [Last Taken Unknown] Tamsulosin HCl 0.4 mg PO DAILY 12/13/16 [Last Taken Unknown] Nystatin [Mycostatin Powder] 15 gm TP TID PRN 02/13/17 [Last Taken Unknown] Cholecalciferol (Vitamin D3) [Vitamin D3] 5,000 unit PO DAILY 02/22/18 [Last Taken Unknown] Lisinopril [Zestril] 40 mg PO BID 02/22/18 [Last Taken Unknown] Magnesium Hydroxide [Milk Of Magnesia] 30 ml PO DAILY PRN 02/22/18 [Last Taken Unknown] Rosuvastatin Calcium [Crestor] 10 mg PO HS 02/22/18 [Last Taken Unknown] Albuterol Sulfate/Ipratropium [Duoneb 2.5-0.5MG/3ML Soln] 3 ml IH QID #100 nebu 02/24/18 [Last Taken Unknown] acetaminophen 325 mg/10.15 mL oral solution 650 mg PO QID ml 03/10/18 [Last Taken Unknown] Docusate Sodium [Doc-Q-Lace] 100 mg PO BID PRN 06/14/18 [Last Taken Unknown] guaiFENesin/DEXTROMETHORPHAN [Robafen-Dm Syrup] 10 ml PO Q4H PRN 06/14/18 [Last Taken Unknown] metoprolol succinate ER 100 mg tablet,extended release 24 hr 100 mg PO BID #60 tab 07/27/18 [Last Taken Unknown] Carboxymethylcellulose Sodium [Refresh Tears] 15 ml OPHTHALMIC (EYE) TID 01/09/19 [Last Taken Unknown] Insulin Detemir [Levemir] 21 units SC HS 01/09/19 [Last Taken Unknown] Insulin Lispro [Humalog] 7 unit SUB-Q TID 01/09/19 [Last Taken Unknown] Exam - Exam Vital Signs: Vital Signs - Last Taken Temp 38.1 C H 01/09/19 21:39 Pulse 85 01/09/19 21:39 Resp 25 H 01/09/19 21:39 BP 135/79 01/09/19 21:21 Pulse Ox 90 L 01/09/19 21:39 Constitutional: Present: Mild distress, Obtunded, Obese ENT Exam: Present: other - did open his eyes one time with name call Eye Exam: bilateral eye: PERRL - sluggishly reactive to light, abnormal pupil - 3-5 mm Neck: Present: supple Respiratory: Present: no accessory muscle use, decreased breath sounds, crackles - left lower lung base, No wheezing Cardiovascular/Chest: Present: regular rate, rhythm, no JVD, no murmur Abdomen: Present: Normal bowel sounds, soft, nontender, nondistended Extremity: Present: no pedal edema Skin Exam: Present: warm/dry Neurologic: Present: other - obtunded, opened eye to name call but drifted back to sleep, positive reaction to pain, positive tongue protrusion, facial assymetry Diagnostic Studies: Abnormal Lab Results 01/09/19 01/09/19 01/09/19 Range/Units 17:30 17:30 17:30 RBC 4.51 L (4.7-6.0) M/mm3 Hct 41.8 L (42.0-52.0) % RDW 14.2 H (11.5-14.0) % Neutrophils % 75.1 H (42-75.0) % Lymphocytes % 14.2 L (20-51) % Neutrophils # 6.4 H (1.3-6.0) K/mm3 Lymphocytes # 1.21 L (1.5-3.5) k/mm3 ESR 27 H (0-10) mm/hr pO2 (83.0-108.0) mmHg HCO3 (21.0-28.0) mmol/L Total CO2 (19.0-24.0) mmol/L ABG O2 Sat (Measured) (94.0-98.0) % Creatinine 1.44 H (0.4-1.4) mg/dL Est GFR (Non-Af Amer) 52 L (60-130) mL/min Random Glucose 138 H (70-110) mg/dL Albumin 3.3 L (3.4-5.0) gm/dl Urine Protein (NEGATIVE) mg/dL Urine Blood (NEGATIVE) /ul Ur Leukocyte Esterase (NEGATIVE) /ul Urine WBC (0-5) /hpf 01/09/19 01/09/19 Range/Units 19: 20:30 RBC (4.7-6.0) M/mm3 Hct (42.0-52.0) % RDW (11.5-14.0) % Neutrophils % (42-75.0) % Lymphocytes % (20-51) % Neutrophils # (1.3-6.0) K/mm3 Lymphocytes # (1.5-3.5) k/mm3 ESR (0-10) mm/hr pO2 64.8 L (83.0-108.0) mmHg HCO3 28.3 H (21.0-28.0) mmol/L Total CO2 29.8 H (19.0-24.0) mmol/L ABG O2 Sat (Measured) 92.5 L (94.0-98.0) % Creatinine (0.4-1.4) mg/dL Est GFR (Non-Af Amer) (60-130) mL/min Random Glucose (70-110) mg/dL Albumin (3.4-5.0) gm/dl Urine Protein 15 H (NEGATIVE) mg/dL Urine Blood 5 H (NEGATIVE) /ul Ur Leukocyte Esterase 25 H (NEGATIVE) /ul Urine WBC 5-10 H (0-5) /hpf Laboratory Results WBC 8.5 K/mm3 (4.0-10.5) 01/09/19 17:30 RBC 4.51 M/mm3 (4.7-6.0) L 01/09/19 17:30 Hgb 13.5 gm/dL (13.5-18.0) 01/09/19 17:30 Hct 41.8 % (42.0-52.0) L 01/09/19 17:30 MCV 92.7 fl (78-100) 01/09/19 17:30 MCH 29.9 pg (27-31) 01/09/19 17:30 MCHC 32.3 g/dl (32-36) 01/09/19 17: RDW 14.2 % (11.5-14.0) H 01/09/19 17:30 Plt Count 180 K/mm3 (150-450) 01/09/19 17:30 MPV 9.5 fl (8-11.3) 01/09/19 17:30 Immature Gran % (Auto) 0.20 % (0.001-0.429) 01/09/19: Immature Gran # (Auto) 0.02 K/mm3 (0.000-0.0310) 01/09/19 17:30 75.1 % (42-75.0) H 01/09/19 17:30 14.2 % (20-51) L 01/09/19 17:30 9.0 % (0.0-9) 01/09/19 17:30 1.3 % (0.0-3.0) 01/09/19 17:30 0.2 % (0.0-1.0) 01/09/19: Nucleated RBC % 0.0 k/mm3 (0-1) 01/09/19 17:30 6.4 K/mm3 (1.3-6.0) H 01/09/19 17:30 1.21 k/mm3 (1.5-3.5) L 01/09/19 17:30 0.8 k/mm3 (0.0-1.0) 01/09/19 17:30 0.1 k/mm3 (0.0-0.7) 01/09/19: Absolute Basophils 0.0 k/mm3 (0.0-0.1) 01/09/19 17: ESR 27 mm/hr (0-10) H 01/09/19 17:30 PT 10.5 Seconds (9.1-10.7) 01/09/19 17: INR (Anticoag Therapy) 1.06 INR (0.92-1.08) 01/09/19 17: PTT (Warren) 25.7 Seconds (24-32) 01/09/19 17:30 pCO2 46.9 mmHg (35.0-48.0) 01/09/19 19:29 pO2 64.8 mmHg (83.0-108.0) L 01/09/19 19: HCO3 28.3 mmol/L (21.0-28.0) H 01/09/19 19: Total CO2 29.8 mmol/L (19.0-24.0) H 01/09/19 19: Base Excess 2.8 mmol/L (-2.0-3.0) 01/09/19: ABG pH 7.40 (7.35-7.45) 01/09/19: ABG O2 Sat (Measured) 92.5 % (94.0-98.0) L 01/09/19 19: Sodium 140 mmol/L (132-142) 01/09/19 17:30 141 mmol/L (130-142) 01/09/19 17:30 Potassium 3.8 mmol/L (3.4-4.6) 01/09/19: Chloride 102 mmol/L (97-106) 01/09/19: Carbon Dioxide 31.5 mmol/L (24-32.6) 01/09/19 17:30 10.3 mmol/L (6.8-13.8) 01/09/19 17:30 BUN 16 mg/dL (6-23) 01/09/19 17:30 1.44 mg/dL (0.4-1.4) H 01/09/19 17:30 Est GFR (Non-Af Amer) 52 mL/min (60-130) L 01/09/19:30 11.1 (9.0-21.6) 01/09/19 17:30 138 mg/dL (70-110) H 01/09/19 17:30 1.7 mmol/L (0.4-2.0) 01/09/19 17:30 Calcium 9.4 mg/dL (7.9-10.9) 01/09/19: Calcium Adj for Albumin 9.6 mg/dL (8.4-10.2) 01/09/19 17:30 0.3 mg/dL (0.0-1.1) 01/09/19 17:30 AST 25 U/L (0-48) 01/09/19:30 ALT 21 U/L (19-67) 01/09/19 17:30 85 U/L (50-170) 01/09/19 17:30 7.7 gm/dL (6.2-8.2) 01/09/19 17:30 3.3 gm/dl (3.4-5.0) L 01/09/19 17:30 Yellow 01/09/19 20:30 Clear (CLEAR) 01/09/19 20:30 6.0 pH (5.0-7.0) 01/09/19 20:30 Ur Specific Clemons 1.020 SP.GR. (1.005-1.030) 01/09/19 20:30 15 mg/dL (NEGATIVE) H 01/09/19 20:30 Negative mg/dL (NEGATIVE) 01/09/19 20:30 Negative mg/dL (NEGATIVE) 01/09/19 20:30 5 /ul (NEGATIVE) H 01/09/19 20:30 Negative (NEGATIVE) 01/09/19 20:30 Negative mg/dl (NEGATIVE) 01/09/19 20:30 Prot Sulfosalicylic Acd 1+ mg/dL (0) 01/09/19 20:30 Normal EU/dl (NORMAL) 01/09/19 20:30 Ur Leukocyte Esterase 25 /ul (NEGATIVE) H 01/09/19 20:30 0-5 /hpf (0-5) 01/09/19 20:30 5-10 /hpf (0-5) H 01/09/19 20:30 Ur Epithelial Cells 0-5 /hpf (0-5) 01/09/19 20:30 Trace (NONE) 01/09/19 20:30 Culture to follow 01/09/19 20:30 Assessment/Plan - Assessment/Plan (1) Pneumonia Assessment: will change to IV Zosyn for possible aspiration pneumonia. will give a dose of Vancomycin tonight due to h/o MRSA. I believe the patient had a acute CVA and then aspirated. Problem: Acute Qualifiers: Pneumonia type: aspiration pneumonia Laterality: left Lung location: lower lobe of lung (2) Altered mental status Assessment: TIA vs CVA. will get MRI in the morning. will give ASA Rectally x 1. will also get CUS and echo with bubble study if positive for acute CVA on MRI. will get PT/OT/St eval and treatment. Problem: Acute Qualifiers: Altered mental status type: unspecified Qualified Code(s): R41.82 - Altered mental status, unspecified (3) Type 2 diabetes mellitus Problem: Chronic Qualifiers: Diabetes mellitus fdc insulin use: without termite treater use Diabetes mellitus complication status: with kidney complications Diabetes mellitus complication detail: with chronic kidney disease Chronic kidney disease stage: stage 3 (moderate) Qualified Code(s): E11.22 - Type 2 diabetes mellitus with diabetic chronic kidney disease; N18.3 - Chronic kidney disease, stage 3 (moderate) (4) Hyperlipidemia Problem: Chronic Qualifiers: Hyperlipidemia type: unspecified Qualified Code(s): E78.5 - Hyperlipidemia, unspecified (5) Schizophrenia Problem: Chronic Qualifiers: Schizophrenia type: unspecified Qualified Code(s): F20.9 - Schizophrenia, unspecified (6) COPD (chronic obstructive pulmonary disease) Problem: Chronic Qualifiers: COPD type: chronic bronchitis Chronic bronchitis type: simple Qualified Code(s): J41.0 - Simple chronic bronchitis (7) Hypertension Problem: Chronic Qualifiers: Hypertension type: essential hypertension Qualified Code(s): I10 - Essential (primary) hypertension
[2019-01-09] MEDS ORDERED: ASPIRIN 300 MG SUPP.RECT RC ONE (23:29)
[2019-01-09] MEDS ORDERED: VANCOMYCIN HCL 1 GM in DEXTROSE 5 % IN WATER 250 ML IV ONE ×2 (23:46)
[2019-01-10] MEDS: ENOXAPARIN SODIUM 40 MG/0.4 ML SYRG SC SCH ×2 (00:20→20:19)
[2019-01-10 05:50] LABS: Hematocrit 41.1 % (42.0-52.0); Hemoglobin 13.1 gm/dL (13.5-18.0); Mean Cell Volume 93.6 fl (78-100); Mean Corpuscular Hemoglobin 29.8 pg (27-31); Mean Corpuscular Hgb Conc 31.9 g/dl (32-36); Mean Platelet Volume 9.6 fl (8-11.3); Neutrophil % 75.3 % (42-75.0); Platelet Count 168 K/mm3 (150-450); Red Blood Count 4.39 M/mm3 (4.7-6.0); Red Cell Distribution Width 14.5 % (11.5-14.0)
[2019-01-10 05:51] LABS: BUN/Creatinine Ratio 11.6 (9.0-21.6); Estimated Creat Clear 54.6
[2019-01-10] MEDS: ALBUTEROL SULFATE/IPRATROPIUM 3 ML NEBU IH SCH ×5 (06:04→18:00)
[2019-01-10] MEDS ORDERED: ALBUTEROL SULFATE/IPRATROPIUM 3 ML NEBU IH SCH (07:00)
[2019-01-10] MEDS: INSULIN LISPRO 100 UNITS/ML VIAL SC SCH ×4 (07:19→12:43)
[2019-01-10] MEDS ORDERED: MAGNESIUM HYDROXIDE 30 ML UDC PO PRN (08:23)
[2019-01-10] MEDS ORDERED: guaiFENesin/DEXTROMETHORPHAN 118 ML BTL PO PRN (08:23)
[2019-01-10] MEDS ORDERED: NYSTATIN 15 APPL BTL TP PRN (08:23)
[2019-01-10] MEDS ORDERED: DOCUSATE SODIUM 100 MG CAPSULE PO PRN (08:23)
[2019-01-10] MEDS ORDERED: RISPERDAL CONSTA 25 MG IM SCH (08:30)
[2019-01-10] MEDS ORDERED: FINASTERIDE 5 MG TABLET PO SCH (09:00)
[2019-01-10] MEDS: POLYETHYLENE GLYCOL 3350 17 GM PACKET PO SCH (10:11)
[2019-01-10] MEDS: ACETAMINOPHEN 325 MG TABLET PO SCH ×2 (10:16→12:43)
[2019-01-10] MEDS: LISINOPRIL 40 MG TABLET PO SCH (10:16)
[2019-01-10] MEDS: METOPROLOL SUCCINATE 100 MG TABLET.SA PO SCH (10:16)
[2019-01-10] MEDS: POLYVINYL ALCOHOL 150 DROP BTL EACHEYE SCH ×3 (10:57→16:39)
[2019-01-10] MEDS ORDERED: AMPICILLIN SODIUM/SULBACTAM NA 3 GM in NORMAL SALINE 100 ML IV SCH (13:15)
[2019-01-10] MEDS: AMPICILLIN SODIUM/SULBACTAM NA 1.5 GM in NORMAL SALINE 100 ML IV SCH ×2 (13:46→19:32)
[2019-01-10] MEDS: ACETAMINOPHEN 650 MG SUPP.RECT RC PRN (15:47)
[2019-01-10] MEDS ORDERED: ENALAPRILAT DIHYDRATE 2.5 MG/2 ML VIAL IV ONE (16:05)
[2019-01-10] MEDS: NORMAL SALINE 1,000 ML IV PRN (16:38)
[2019-01-10] MEDS ORDERED: cloNIDine 0.2 MG PATCH.TDWK TD SCH (17:00)
[2019-01-10] MEDS ORDERED: METOPROLOL TARTRATE 1 MG/ML AMPUL IV ONE (17:27)
[2019-01-10] MEDS ORDERED: TAMSULOSIN HCL 0.4 MG CAP.SR.24H PO SCH (18:00)
[2019-01-10] MEDS ORDERED: METOPROLOL TARTRATE 1 MG/ML AMPUL IV STA (19:16)
[2019-01-10] MEDS: INSULIN DETEMIR 100 UNITS/ML VIAL SC SCH (20:26)
[2019-01-10] MEDS ORDERED: LABETALOL HCL 5 MG/ML VIAL IV ONE ×4 (20:32→21:03)
--- NOTE | 2019-01-10 20:56 | PN ---
Subjective - Date and Time Seen Date: 01/10/19 Time: 12:40 Objective - Review of Systems Generalized/Overall Review: Reports: Fever EENTM: Reports: No Symptoms Reported Respiratory: Reports: Cough, Wheezing Cardiac: Reports: Other - Rapid heart rate and Hypertension Abdominal: Reports: No Symptoms Reported Genitourinary Symptoms: Reports: No Symptoms Reported Musculoskeletal Complaints: Reports: No Symptoms Reported Neurological: Reports: Pre-existing Deficit, Other - minimally responsive to verbal stimumli Endocrine: Reports: No Symptoms Reported - Vitals Vitals: Last Vital Signs Temp 38.6 C H 01/10/19 19:00 Pulse 95 01/10/19 19:59 Resp 24 H 01/10/19 19:00 BP 189/103 H 01/10/19 19:59 Pulse Ox 100 01/10/19 19:59 - Abnormal Lab Findings Abnormal Lab Findings: Abnormal Lab Results 01/09/19 01/10/19 01/10/19 Range/Units 20:30 05:41 05:41 RBC 4.39 L (4.7-6.0) M/mm3 Hgb 13.1 L (13.5-18.0) gm/dL Hct 41.1 L (42.0-52.0) % MCHC 31.9 L (32-36) g/dl RDW 14.5 H (11.5-14.0) % Neutrophils % 75.3 H (42-75.0) % Lymphocytes % 12.1 L (20-51) % Monocytes % 11.5 H (0.0-9) % Lymphocytes # 0.97 L (1.5-3.5) k/mm3 Carbon Dioxide 33.0 H (24-32.6) mmol/L Creatinine 1.46 H (0.4-1.4) mg/dL Est GFR (Non-Af Amer) 51 L (60-130) mL/min Random Glucose 150 H (70-110) mg/dL Urine Protein 15 H (NEGATIVE) mg/dL Urine Blood 5 H (NEGATIVE) /ul Ur Leukocyte Esterase 25 H (NEGATIVE) /ul Urine WBC 5-10 H (0-5) /hpf - EKG/Xray Findings EKG: NSR, no ST T wave changes EKG read: Interp. by me XRAY: chest Interpretation: Reviewed by me - Exam Constitutional: Present: Obtunded, Elderly ENT Exam: Present: normal ENT inspection, hearing grossly normal, pharynx normal, TMs normal Neck: Present: non-tender, full range of motion, supple, normal inspection, trachea midline Breasts: Present: Exam deferred, Nontender Respiratory: Present: chest non-tender, decreased breath sounds, rhonchi, wheezing, expiration (prolonged) Cardiovascular/Chest: Present: tachycardia Abdomen: Present: Normal bowel sounds, soft, nontender, nondistended, no rebound tenderness, no hepatospenomegaly, no masses, obese /Rectal: Present: Exam deferred Extremity: Present: normal range of motion, non-tender, normal inspection, no pedal edema, no calf tenderness, normal capillary refill Skin Exam: Present: normal color, warm/dry, no cyanosis Lymphatic: Present: no adenopathy Neurologic: Present: bicycle assembler II-XII nml as tested Appearance: Present: impaired insight, impaired recent memory Eye contact: Present: other - Obtunded mentation Thoughts: Present: no apparent hallucination Assessment/Plan Plan Narrative: Mr. Whitaker is a 68-year-old male patient well-known to me from caring for him at the [facility]. He presented to the emergency room obtunded with significant alteration in mental status, fever, and chest congestion. He has a history of pneumonia. Evaluation in the emergency room was suspicious for but not diagnostic of pneumonia. He was started on several IV antibiotics including vancomycin, Pipracil and, azithromycin, and Rocephin. I ordered a CT scan of the chest which does show multifocal pneumonias in both lungs. It is suspicious for an aspiration event. He has been obtunded not able take any of his oral medications. He is an insulin-dependent diabetic but blood sugars have been under 200. I will resume his basal insulin but hold his mealtime insulin since he is not eating. His blood pressure and heart rate have crept up some. I gave him 2.5 mg of enalapril which did not have any effect. And then gave him 5 mg of metoprolol IV which did bring his blood pressure down momentarily only to have it go back up again. An MRI of his brain was done and there is no new acute injury. He has had a stroke in the past and he has microvascular calcifications and white matter disease. His temperature is been about 38.2 degrees. I spoke with our Pharm.D. and we agreed to place him on Unasyn 1.5 g every 6 hours. I will continue to monitor his blood pressure. - Problems/Diagnosis (1) Aspiration pneumonia Problem: Acute Qualifiers: Laterality: bilateral (2) Type 2 diabetes mellitus Problem: Chronic Qualifiers: Diabetes mellitus truck terminal manager insulin use: without truck terminal manager use Diabetes mellitus complication status: with kidney complications Diabetes mellitus complication detail: with chronic kidney disease Chronic kidney disease stage: stage 3 (moderate) Qualified Code(s): E11.22 - Type 2 diabetes mellitus with diabetic chronic kidney disease; N18.3 - Chronic kidney disease, stage 3 (moderate) (3) Acute respiratory failure Problem: Acute Qualifiers: Respiratory failure complication: hypoxia Qualified Code(s): J96.01 - Acute respiratory failure with hypoxia (4) Altered mental status, unspecified Problem: Acute Qualifiers: Altered mental status type: stupor Qualified Code(s): R40.1 - Stupor (5) HTN (hypertension) Problem: Chronic Qualifiers: Hypertension type: essential hypertension Qualified Code(s): I10 - Essential (primary) hypertension (6) Morbid obesity Problem: Chronic
[2019-01-10] MEDS ORDERED: ROSUVASTATIN CALCIUM 10 MG TABLET PO SCH (21:00)
--- NOTE | 2019-01-10 21:02 | PN ---
Progess Note - Interim Date: 01/10/19 Time: 20:20 Narrative: 01/10/19 20:56 Mr. Whitaker's blood pressure has continued to rise and has risen to the point of hypertensive urgency. I am not aware of any acute target organ damage. He does have some renal insufficiency from his diabetes and hypertension. He has definitely had a marked decline in his alertness. MRI of the brain however is unchanged 3. CT of the chest shows multiple infiltrates in both lungs suggestive of an aspiration event. I have moved him to SCU this evening. His blood pressure in SCU is 180/99 initially. It had been in the 240/130 range earlier. I had given him another 5 mg of metoprolol before moving him to SCU. I will place him on a labetalol drip after giving him an initial 10 mg bolus over 2 minutes. We will start the drip at 2mg/min and then titrate to keep pressure under 140/90. I believe this hypertensive urgency has developed because he has not been getting his oral antihypertensives and he is getting a rebound sympathetic outflow causing the severe blood pressure. He is more alert and opens his eyes and even responds appropriately with yes or no answers which is an improvement from midday today. He is still hypersomnolent and snoring. He is having some sleep apnea. Morning lab is ordered and I have asked them to do an EKG this evening.
[2019-01-10] MEDS: LABETALOL HCL 100 MG in NORMAL SALINE 80 ML IV PRN ×2 (21:18→22:06)
[2019-01-11] MEDS ORDERED: PIPERACILLIN SODIUM/TAZOBACTAM 3.375 GM in DEXTROSE 5 % IN WATER 100 ML IV SCH ×2
[2019-01-11] MEDS: AMPICILLIN SODIUM/SULBACTAM NA 1.5 GM in NORMAL SALINE 100 ML IV SCH ×4 (01:36→18:58)
[2019-01-11] MEDS: ACETAMINOPHEN 650 MG SUPP.RECT RC PRN (01:41)
[2019-01-11 05:31] LABS: Hemoglobin 12.3 gm/dL (13.5-18.0); Mean Cell Volume 94.9 fl (78-100); Mean Corpuscular Hemoglobin 29.9 pg (27-31); Mean Corpuscular Hgb Conc 31.5 g/dl (32-36); Mean Platelet Volume 9.9 fl (8-11.3); Neutrophil # 9.7 K/mm3 (1.3-6.0); Platelet Count 160 K/mm3 (150-450); Red Blood Count 4.11 M/mm3 (4.7-6.0); Red Cell Distribution Width 14.5 % (11.5-14.0); White Blood Count 11.9 K/mm3 (4.0-10.5)
[2019-01-11] MEDS: NORMAL SALINE 1,000 ML IV PRN (05:41)
[2019-01-11 05:44] LABS: Anion Gap 12.7 mmol/L (6.8-13.8); Calcium * 8.8 mg/dL (7.9-10.9); Carbon Dioxide 28.3 mmol/L (24-32.6); Estimated Creat Clear 50.5
[2019-01-11] MEDS: ALBUTEROL SULFATE/IPRATROPIUM 3 ML NEBU IH SCH ×4 (06:03→18:09)
[2019-01-11] MEDS ORDERED: NORMAL SALINE 1,000 ML IV PRN (08:11)
--- NOTE | 2019-01-11 08:35 | PN ---
Subjective - Date and Time Seen Date: 01/11/19 Time: 08:23 Subjective Narrative: ~ 2 hrs after starting the Labetalal drip last night his BPs stabilized and he has not been on the drip since. The BP is 111/76 and the pulse is in the 80s. He is afebrile this morning. He did have a diaphoretic event probably from a fever break by crisis. His Elyts are ok. His 'Creat is up to 1.5 and the Egfr is decreased to 47 this morning. This mornings CXR is showing persistant LLL infliltrate. He is more obtunded this morning. He has rested very well through the night on CPAP. I'll have to consider parenteral nutrition soon if he doesn't wake up and start taking oral nutrition. Continue with the Unysyn. Objective - Review of Systems Generalized/Overall Review: Reports: Weakness, Fever, Diaphoresis EENTM: Reports: No Symptoms Reported Respiratory: Reports: Cough, Wheezing Cardiac: Reports: No Symptoms Reported Abdominal: Reports: No Symptoms Reported Genitourinary Symptoms: Reports: No Symptoms Reported Musculoskeletal Complaints: Reports: No Symptoms Reported Neurological: Reports: Weakness, Pre-existing Deficit Skin: Reports: No Symptoms Reported Endocrine: Reports: No Symptoms Reported - Vitals Vitals: Last Vital Signs Temp 37.1 C 01/11/19 07:00 Pulse 86 01/11/19 08:02 Resp 18 01/11/19 08:02 BP 111/71 01/11/19 08:02 Pulse Ox 98 01/11/19 08:02 - Abnormal Lab Findings Abnormal Lab Findings: Abnormal Lab Results 01/11/19 01/11/19 Range/Units 05:25 05:25 WBC 11.9 H D (4.0-10.5) K/mm3 RBC 4.11 L (4.7-6.0) M/mm3 Hgb 12.3 L (13.5-18.0) gm/dL Hct 39.0 L (42.0-52.0) % MCHC 31.5 L (32-36) g/dl RDW 14.5 H (11.5-14.0) % Immature Gran # (Auto) 0.04 H (0.000-0.0310) K/mm3 Neutrophils % 81.0 H (42-75.0) % Lymphocytes % 10.9 L (20-51) % Neutrophils # 9.7 H (1.3-6.0) K/mm3 Lymphocytes # 1.30 L (1.5-3.5) k/mm3 Creatinine 1.58 H (0.4-1.4) mg/dL Est GFR (Non-Af Amer) 47 L (60-130) mL/min Random Glucose 165 H (70-110) mg/dL - EKG/Xray Findings EKG: NSR, no ST T wave changes EKG read: Interp. by me XRAY: chest Interpretation: Reviewed by me - Exam Constitutional: Present: Obtunded, Elderly ENT Exam: Present: normal ENT inspection Neck: Present: non-tender Breasts: Present: Exam deferred Respiratory: Present: rhonchi, wheezing, expiration (prolonged) Cardiovascular/Chest: Present: normal peripheral pulses, regular rate, rhythm, no chest tenderness, no edema, no gallop, no JVD, no murmur, no rub Abdomen: Present: Normal bowel sounds, soft, nontender, nondistended, no rebound tenderness, no hepatospenomegaly, no masses /Rectal: Present: Exam deferred, External genitalia normal Extremity: Present: normal range of motion, non-tender, normal inspection, no pedal edema, no calf tenderness, normal capillary refill Skin Exam: Present: normal color, warm/dry Lymphatic: Present: no adenopathy 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 Give Metoprolol 5 mg IVP q 6 hrs 2. Increase IV fluids 3. Cont. Unysyn 4. Repeat morning lab tomorrow. 5. Consider PIC line for parenteral nutrition. - Problems/Diagnosis (1) Aspiration pneumonia Problem: Acute Qualifiers: Laterality: bilateral (2) Type 2 diabetes mellitus Problem: Chronic Qualifiers: Diabetes mellitus senior living insulin use: without senior living use Diabetes mellitus complication status: with kidney complications Diabetes mellitus complication detail: with chronic kidney disease Chronic kidney disease stage: stage 3 (moderate) Qualified Code(s): E11.22 - Type 2 diabetes mellitus with diabetic chronic kidney disease; N18.3 - Chronic kidney disease, stage 3 (moderate) (3) Acute respiratory failure Problem: Acute Qualifiers: Respiratory failure complication: hypoxia Qualified Code(s): J96.01 - Acute respiratory failure with hypoxia (4) Altered mental status, unspecified Problem: Acute Qualifiers: Altered mental status type: stupor Qualified Code(s): R40.1 - Stupor (5) HTN (hypertension) Problem: Chronic Qualifiers: Hypertension type: essential hypertension Qualified Code(s): I10 - Essential (primary) hypertension (6) Morbid obesity Problem: Chronic
[2019-01-11] MEDS: METOPROLOL TARTRATE 1 MG/ML AMPUL IV SCH ×3 (10:15→21:01)
[2019-01-11] MEDS: POLYVINYL ALCOHOL 150 DROP BTL EACHEYE SCH ×3 (10:16→17:03)
[2019-01-11] MEDS: INSULIN DETEMIR 100 UNITS/ML VIAL SC SCH (20:54)
[2019-01-11] MEDS: ENOXAPARIN SODIUM 40 MG/0.4 ML SYRG SC SCH (20:58)
[2019-01-12] MEDS: NORMAL SALINE 1,000 ML IV PRN (00:14)
[2019-01-12] MEDS: AMPICILLIN SODIUM/SULBACTAM NA 1.5 GM in NORMAL SALINE 100 ML IV SCH ×4 (01:33→19:11)
[2019-01-12] MEDS: METOPROLOL TARTRATE 1 MG/ML AMPUL IV SCH ×2 (01:35→08:23)
[2019-01-12 05:25] LABS: Hematocrit 39.4 % (42.0-52.0); Hemoglobin 12.1 gm/dL (13.5-18.0); Mean Cell Volume 96.3 fl (78-100); Mean Corpuscular Hemoglobin 29.6 pg (27-31); Mean Corpuscular Hgb Conc 30.7 g/dl (32-36); Mean Platelet Volume 9.9 fl (8-11.3); Neutrophil # 4.7 K/mm3 (1.3-6.0); Neutrophil % 69.4 % (42-75.0); Platelet Count 151 K/mm3 (150-450); Red Blood Count 4.09 M/mm3 (4.7-6.0); Red Cell Distribution Width 14.5 % (11.5-14.0); White Blood Count 6.8 K/mm3 (4.0-10.5)
[2019-01-12] MEDS: ALBUTEROL SULFATE/IPRATROPIUM 3 ML NEBU IH SCH ×4 (06:10→18:04)
[2019-01-12 06:13] LABS: Albumin * 2.7 gm/dl (3.4-5.0); Anion Gap 12.8 mmol/L (6.8-13.8); BUN/Creatinine Ratio 19.1 (9.0-21.6); Bilirubin, Total 0.3 mg/dL (0.0-1.1); Ca. Corrected For Albumin 9.1 mg/dL (8.4-10.2); Calcium * 8.4 mg/dL (7.9-10.9); Potassium 3.8 mmol/L (3.4-4.6); Total Protein 6.3 gm/dL (6.2-8.2)
[2019-01-12] MEDS: POLYVINYL ALCOHOL 150 DROP BTL EACHEYE SCH ×3 (09:30→17:49)
[2019-01-12] MEDS: INSULIN LISPRO 100 UNITS/ML VIAL SC SCH ×6 (10:18→20:33)
[2019-01-12] MEDS: METOPROLOL SUCCINATE 100 MG TABLET.SA PO SCH ×2 (10:26→20:35)
[2019-01-12] MEDS: LISINOPRIL 40 MG TABLET PO SCH ×4 (10:26→20:41)
[2019-01-12] MEDS: POLYETHYLENE GLYCOL 3350 17 GM PACKET PO SCH (10:26)
[2019-01-12] MEDS: ACETAMINOPHEN 325 MG TABLET PO SCH ×4 (10:26→20:35)
--- NOTE | 2019-01-12 12:39 | PN ---
Subjective - Date and Time Seen Date: 01/12/19 Time: 07:50 Subjective Narrative: Mr. Whitaker has had an awakening. He had been obtunded yesterday morning and I could not arouse him. His son came to visit and Vince awoke, became conversant, and started eating some clear liquids. He has become fully awake and alert and back to his usual baseline. He is eating full liquids well and wants some solid food. I moved him to a consstant carb diet/mech. soffented and resumed many of his po meds and his insulins. He is sitting up this morning in his chair eating breakfast unassisted. Morning lab shows marked improvedmend in hs renal status. BS of 112 this morning. Na+ up to 148. I stopped his IV NS and salined locked the IV. He will walk today. Planning on discharging him tomorrow morning. Objective - Review of Systems Generalized/Overall Review: Reports: No Symptoms Reported EENTM: Reports: No Symptoms Reported Respiratory: Reports: Cough, Wheezing Cardiac: Reports: No Symptoms Reported Abdominal: Reports: No Symptoms Reported Genitourinary Symptoms: Reports: No Symptoms Reported Musculoskeletal Complaints: Reports: No Symptoms Reported Neurological: Reports: No Symptoms Reported Skin: Reports: No Symptoms Reported Endocrine: Reports: No Symptoms Reported - Vitals Vitals: Last Vital Signs Temp 36.8 C 01/12/19 10:00 Pulse 65 01/12/19 10:50 Resp 24 H 01/12/19 10:50 BP 167/108 H 01/12/19 10:26 Pulse Ox 99 01/12/19 10:40 - Abnormal Lab Findings Abnormal Lab Findings: Abnormal Lab Results 01/12/19 01/12/19 Range/Units 05:24 05:24 RBC 4.09 L (4.7-6.0) M/mm3 Hgb 12.1 L (13.5-18.0) gm/dL Hct 39.4 L (42.0-52.0) % MCHC 30.7 L (32-36) g/dl RDW 14.5 H (11.5-14.0) % Lymphocytes # 1.46 L (1.5-3.5) k/mm3 Sodium 148 H (132-142) mmol/L Plasma Sodium 148 H (130-142) mmol/L Chloride 110 H (97-106) mmol/L Random Glucose 112 H D (70-110) mg/dL Albumin 2.7 L (3.4-5.0) gm/dl - EKG/Xray Findings EKG read: Interp. by me Interpretation: Reviewed by me - Exam Constitutional: Present: Alert, Oriented x3, Cooperative, Well developed, Well nourished, No distress ENT Exam: Present: normal ENT inspection, hearing grossly normal, pharynx normal, TMs normal Neck: Present: non-tender, full range of motion, supple, normal inspection, trachea midline Breasts: Present: Nontender Respiratory: Present: chest non-tender, rhonchi, wheezing - Improving Cardiovascular/Chest: Present: normal peripheral pulses, regular rate, rhythm, no chest tenderness, no edema, no gallop, no JVD, no murmur Abdomen: Present: Normal bowel sounds, soft, nontender, nondistended, no rebound tenderness, no hepatospenomegaly, no masses, obese /Rectal: Present: Exam deferred Extremity: Present: normal range of motion, normal inspection Skin Exam: Present: normal color, warm/dry, no cyanosis Lymphatic: Present: no adenopathy Neurologic: Present: environmental engineer II-XII nml as tested, normal cerebellar test, no motor/sensory deficits, alert, normal mood/affect Appearance: Present: appropriate appearance, appropriate insight, neat, no memory impairment Eye contact: Present: cooperative, good eye contact, normal speech, avoids eye contact, refused to answer Thoughts: Present: normal thought pattern, no apparent hallucination Assessment/Plan Plan Narrative: 1/ change back to oral meds. 2. Saline lock IV and DC IV fluids 3. Continue Unasyn today. Change to Augmentin tomorrow. 4. Ordered morning lab and cxr. - Problems/Diagnosis (1) Aspiration pneumonia Problem: Acute Qualifiers: Laterality: bilateral (2) Type 2 diabetes mellitus Problem: Chronic Qualifiers: Diabetes mellitus long-term insulin use: without long-term use Diabetes mellitus complication status: with kidney complications Diabetes mellitus complication detail: with chronic kidney disease Chronic kidney disease stage: stage 3 (moderate) Qualified Code(s): E11.22 - Type 2 diabetes mellitus with d iabetic chronic kidney disease; N18.3 - Chronic kidney disease, stage 3 (moderate) (3) Acute respiratory failure Problem: Resolved Qualifiers: Respiratory failure complication: hypoxia Qualified Code(s): J96.01 - Acute respiratory failure with hypoxia (4) Altered mental status, unspecified Problem: Resolved Qualifiers: Altered mental status type: stupor Qualified Code(s): R40.1 - Stupor (5) HTN (hypertension) Problem: Chronic Qualifiers: Hypertension type: essential hypertension Qualified Code(s): I10 - Essential (primary) hypertension (6) Morbid obesity Problem: Chronic
[2019-01-12] MEDS: INSULIN DETEMIR 100 UNITS/ML VIAL SC SCH (20:33)
[2019-01-12] MEDS: ENOXAPARIN SODIUM 40 MG/0.4 ML SYRG SC SCH (20:34)
[2019-01-13] MEDS: AMPICILLIN SODIUM/SULBACTAM NA 1.5 GM in NORMAL SALINE 100 ML IV SCH ×2 (00:14→07:35)
[2019-01-13] MEDS ORDERED: amLODIPine BESYLATE 5 MG TABLET PO ONE (01:05)
[2019-01-13 05:42] LABS: Hemoglobin 10.6 gm/dL (13.5-18.0); Mean Cell Volume 92.6 fl (78-100); Mean Corpuscular Hemoglobin 28.9 pg (27-31); Mean Corpuscular Hgb Conc 31.2 g/dl (32-36); Mean Platelet Volume 9.8 fl (8-11.3); Platelet Count 162 K/mm3 (150-450); Red Blood Count 3.67 M/mm3 (4.7-6.0); White Blood Count 6.2 K/mm3 (4.0-10.5)
[2019-01-13 05:46] LABS: Total Cells Counted 100
[2019-01-13 05:47] LABS: Anion Gap 11.4 mmol/L (6.8-13.8); BUN/Creatinine Ratio 14.2 (9.0-21.6); Calcium * 8.6 mg/dL (7.9-10.9); Carbon Dioxide 29.9 mmol/L (24-32.6); Estimated Creat Clear 70.6; Potassium 3.3 mmol/L (3.4-4.6)
[2019-01-13] MEDS: ALBUTEROL SULFATE/IPRATROPIUM 3 ML NEBU IH SCH ×2 (06:01→10:43)
[2019-01-13 06:02] LABS: Band 1 % (0-2.0); Eosinophil 3 % (0-3); Lymphocyte 22 % (20-51); Monocyte 4 % (0-9); Neutrophil 70 % (42-75); Neutrophil # 4.3 K/mm3 (1.3-6.0); Platelet Estimate Normal (NORMAL); RBC Morphology Normal (NORMAL)
[2019-01-13] MEDS: INSULIN LISPRO 100 UNITS/ML VIAL SC SCH ×2 (06:49)
[2019-01-13] MEDS: POLYETHYLENE GLYCOL 3350 17 GM PACKET PO SCH (08:56)
[2019-01-13] MEDS: METOPROLOL SUCCINATE 100 MG TABLET.SA PO SCH (08:57)
[2019-01-13] MEDS: ACETAMINOPHEN 325 MG TABLET PO SCH (08:58)
[2019-01-13] MEDS: LISINOPRIL 40 MG TABLET PO SCH (09:02)
[2019-01-13] MEDS: POLYVINYL ALCOHOL 150 DROP BTL EACHEYE SCH (09:04)
--- NOTE | 2019-01-13 09:10 | DS ---
(1) Aspiration pneumonia Problem: Acute Qualifiers: Laterality: bilateral (2) Type 2 diabetes mellitus Problem: Chronic Qualifiers: Diabetes mellitus environmental auditor insulin use: without shelter use Diabetes mellitus complication status: with kidney complications Diabetes mellitus complication detail: with chronic kidney disease Chronic kidney disease stage: stage 3 (moderate) Qualified Code(s): E11.22 - Type 2 diabetes mellitus with diabetic chronic kidney disease; N18.3 - Chronic kidney disease, stage 3 (moderate) (3) Acute respiratory failure Problem: Resolved Qualifiers: Respiratory failure complication: hypoxia Qualified Code(s): J96.01 - Acute respiratory failure with hypoxia (4) Altered mental status, unspecified Problem: Resolved Qualifiers: Altered mental status type: stupor Qualified Code(s): R40.1 - Stupor (5) HTN (hypertension) Problem: Chronic Qualifiers: Hypertension type: essential hypertension Qualified Code(s): I10 - Essential (primary) hypertension (6) Morbid obesity Problem: Chronic Description of Stay: Vince Whitaker is a 68-year-old male patient well-known to me from taking care of him at [facility]. He had an event where he was found unconscious and unresponsive to any form of stimuli. His pulse ox was 40%. He was placed on oxygen that got him up around 80% while EMS was being summoned. He was transported to the emergency room at admitted with presumptive pneumonia with a possible infiltrate in the left lower lobe. It was uncertain initially whether he had had a stroke or if he had an aspiration event with hypoxia causing a acute brain insult. He had a CT of the head that was clear. Subsequently an MRI was ordered which did not show any acute stroke. A CT of the chest however showed bi basilar infiltrates or atelectasis. He initially had a leukocytosis that has normalized. He had a severe hypertensive urgency that required parenteral antihypertensive medicines and he was moved to SCU so that he could be on a labetalol drip. His pressure normalized. It is presumptive that is because he was not awake and able to take his oral blood pressure medicines and with the stress of his infection he simply had a large amount of sympathetic outflow that caused his severe hypertension in the 240/125 range. He remained obtunded for about 5 days from the event. During that time he had had no nutritional support and I was considering a feeding tube but he had an advanced directive stating he did not wish to have any feeding tubes. His son visited and concurred. He was given clear liquids and tolerated that well. He stood up to transfer to a chair with standby assist. His son spoke his name and [place] woke up and started speaking and it was as if nothing had happened in the past 5 days. He was moved from SCU back to general medical floor. He was started back on his oral medications. His chemistries have improved. The white count is normalized. His hemoglobin has dropped to 10.3 g but I suspect that that is dilutional from the IV fluids. He is now eating a mechanically soft consistent carb diet. He is back on his usual insulin regime. I have continued using Unasyn as his antibiotic and that will be changed to Augmentin on discharge. His disposition is much improved. He will be returned to [facility] today. Procedures Performed: none Results and Findings: Pending Mircobiology Results 01/09/19 17:45 Blood Blood Culture - Preliminary NO GROWTH AFTER 48 HOURS 01/09/19 17:25 Blood Blood Culture - Preliminary NO GROWTH AFTER 48 HOURS Lab Pending Results 01/09/19 17:30: WBC 8.5, RBC 4.51 L, Hgb 13.5, Hct 41.8 L, MCV 92.7, MCH 29.9, MCHC 32.3, RDW 14.2 H, Plt Count 180, MPV 9.5, Immature Gran % (Auto) 0.20, Immature Gran # (Auto) 0.02, Neutrophils % 75.1 H, Lymphocytes % 14.2 L, Monocytes % 9.0, Eosinophils % 1.3, Basophils % 0.2, Nucleated RBC % 0.0, Neutrophils # 6.4 H, Lymphocytes # 1.21 L, Monocytes # 0.8, Eosinophils # 0.1, Absolute Basophils 0.0 01/09/19 17:30: ESR 27 H 01/09/19 17:30: PT 10.5, INR (Anticoag Therapy) 1.06, PTT (Favio) 25.7 01/09/19 17:30: Sodium 140, Plasma Sodium 141, Potassium 3.8, Chloride 102, Carbon Dioxide 31.5, Anion Gap 10.3, BUN 16, Creatinine 1.44 H, Est GFR (Non-Af Amer) 52 L, BUN/Creatinine Ratio 11.1, Random Glucose 138 H, Calcium 9.4, Calcium Adj for Albumin 9.6, Total Bilirubin 0.3, AST 25, ALT 21, Alkaline Phosphatase 85, Total Protein 7.7, Albumin 3.3 L 01/09/19 17:30: Lactic Acid, Venous 1.7 01/09/19 19:29: pCO2 46.9, pO2 64.8 L, HCO3 28.3 H, Total CO2 29.8 H, Base Excess 2.8, ABG pH 7.40, ABG O2 Sat (Measured) 92.5 L 01/09/19 20:30: Urine Color Yellow, Urine Appearance Clear, Urine pH 6.0, Ur Specific [place] 1.020, Urine Protein 15 H, Urine Glucose (UA) Negative, Urine Ketones Negative, Urine Blood 5 H, Urine Nitrate Negative, Urine Bilirubin Negative, Prot Sulfosalicylic Acd 1+, Urine Urobilinogen Normal, Ur Leukocyte Esterase 25 H, Urine RBC 0-5, Urine WBC 5-10 H, Ur Epithelial Cells 0-5, Urine Bacteria Trace, Urine Culture Comments Culture to follow 01/10/19 05:41: WBC 8.0, RBC 4.39 L, Hgb 13.1 L, Hct 41.1 L, MCV 93.6, MCH 29.8, MCHC 31.9 L, RDW 14.5 H, Plt Count 168, MPV 9.6, Immature Gran % (Auto) 0.40, Immature Gran # (Auto) 0.03, Neutrophils % 75.3 H, Lymphocytes % 12.1 L, Monocytes % 11.5 H, Eosinophils % 0.6, Basophils % 0.1, Nucleated RBC % 0.0, Neutrophils # 6.0, Lymphocytes # 0.97 L, Monocytes # 0.9, Eosinophils # 0.1, Absolute Basophils 0.0 01/10/19 05:41: Sodium 140, Plasma Sodium 141, Potassium 4.0, Chloride 100, Carbon Dioxide 33.0 H, Anion Gap 11.0, BUN 17, Creatinine 1.46 H, Est GFR (Non- Af Amer) 51 L, BUN/Creatinine Ratio 11.6, Random Glucose 150 H, Calcium 9.0 01/11/19 05:25: WBC 11.9 H D, RBC 4.11 L, Hgb 12.3 L, Hct 39.0 L, MCV 94.9, MCH 29.9, MCHC 31.5 L, RDW 14.5 H, Plt Count 160, MPV 9.9, Immature Gran % (Auto) 0.30, Immature Gran # (Auto) 0.04 H, Neutrophils % 81.0 H, Lymphocytes % 10.9 L, Monocytes % 7.6, Eosinophils % 0.0, Basophils % 0.2, Nucleated RBC % 0.0, Neutrophils # 9.7 H, Lymphocytes # 1.30 L, Monocytes # 0.9, Eosinophils # 0.0, Absolute Basophils 0.0 01/11/19 05:25: Sodium 140, Plasma Sodium 141, Potassium 4.0, Chloride 103, Carbon Dioxide 28.3, Anion Gap 12.7, BUN 19, Creatinine 1.58 H, Est GFR (Non-Af Amer) 47 L, BUN/Creatinine Ratio 12.0, Random Glucose 165 H, Calcium 8.8 01/12/19 05:24: WBC 6.8 D, RBC 4.09 L, Hgb 12.1 L, Hct 39.4 L, MCV 96.3, MCH 29.6, MCHC 30.7 L, RDW 14.5 H, Plt Count 151, MPV 9.9, Immature Gran % (Auto) 0.10, Immature Gran # (Auto) 0.01, Neutrophils % 69.4, Lymphocytes % 21.4, Monocytes % 7.3, Eosinophils % 1.5, Basophils % 0.3, Nucleated RBC % 0.0, Neutrophils # 4.7, Lymphocytes # 1.46 L, Monocytes # 0.5, Eosinophils # 0.1, Absolute Basophils 0.0 01/12/19 05:24: Sodium 148 H, Plasma Sodium 148 H, Potassium 3.8, Chloride 110 H, Carbon Dioxide 29.0, Anion Gap 12.8, BUN 21, Creatinine 1.10, Est GFR (Non-Af Amer) 71 D, BUN/Creatinine Ratio 19.1, Random Glucose 112 H D, Calcium 8.4, Calcium Adj for Albumin 9.1, Total Bilirubin 0.3, AST 22, ALT 19, Alkaline Phosphatase 61, Total Protein 6.3, Albumin 2.7 L 01/13/19 05:36: WBC 6.2, RBC 3.67 L, Hgb 10.6 L, Hct 34.0 L, MCV 92.6, MCH 28.9, MCHC 31.2 L, RDW 14.0, Plt Count 162, MPV 9.8, Neutrophils % (Manual) 70, Band Neuts % (Manual) 1, Lymphocytes % (Manual) 22, Monocytes % (Manual) 4, Eosinophils % (Manual) 3, Neutrophils # (Manual) 4.3, Lymphocytes # (Manual) 1.4 L, Monocytes # (Manual) 0.2, Eosinophils # (Manual) 0.2, Platelet Estimate Normal, RBC Morphology Normal 01/13/19 05:36: Sodium 139, Plasma Sodium 139, Potassium 3.3 L, Chloride 101, Carbon Dioxide 29.9, Anion Gap 11.4, BUN 16, Creatinine 1.13, Est GFR (Non-Af Amer) 69, BUN/Creatinine Ratio 14.2, Random Glucose 94, Calcium 8.6 Discharge Location: [facility] Disposition: [facility] Condition: Good Face to Face Encounter completed per [facility] Guidelines: No Level of Care: SNF Discharge Activity: Activity as tolerated [facility] Therapy: Physicial Therapy, Occupation Therapy Referrals: Abdirahman Cast DO [Primary Care Provider] - Prescriptions (Any new or edited meds): Amox Tr/Potassium Clavulanate [Augmentin 875-125 Tablet] 875 mg PO Q12H #14 tab Complete Home Medications List: Complete Home Medication List: Polyethylene Glycol 3350 [Miralax] 17 gm PO DAILY 05/08/15 metFORMIN HCL [Glucophage] 1,000 mg PO BIDWM 05/08/15 risperiDONE MICROSPHERES [Risperdal Consta] 25 mg IM Q14D 05/08/15 Finasteride [Proscar] 5 mg PO DAILY 12/13/16 Tamsulosin HCl 0.4 mg PO DAILY 12/13/16 Nystatin [Mycostatin Powder] 15 gm TP TID PRN 02/13/17 Cholecalciferol (Vitamin D3) [Vitamin D3] 5,000 unit PO DAILY 02/22/18 Lisinopril [Zestril] 40 mg PO BID 02/22/18 Magnesium Hydroxide [Milk Of Magnesia] 30 ml PO DAILY PRN 02/22/18 Rosuvastatin Calcium [Crestor] 10 mg PO HS 02/22/18 Albuterol Sulfate/Ipratropium [Duoneb 2.5-0.5MG/3ML Soln] 3 ml IH QID #100 nebu 02/24/18 acetaminophen 325 mg/10.15 mL oral solution 650 mg PO QID ml 03/10/18 Docusate Sodium [Doc-Q-Lace] 100 mg PO BID PRN 06/14/18 guaiFENesin/DEXTROMETHORPHAN [Robafen-Dm Syrup] 10 ml PO Q4H PRN 06/14/18 metoprolol succinate ER 100 mg tablet,extended release 24 hr 100 mg PO BID #60 tab 07/27/18 Carboxymethylcellulose Sodium [Refresh Tears] 15 ml OPHTHALMIC (EYE) TID 01/09/19 Insulin Detemir [Levemir] 21 units SC HS 01/09/19 Insulin Lispro [Humalog] 7 unit SUB-Q TID 01/09/19 Amox Tr/Potassium Clavulanate [Augmentin 875-125 Tablet] 875 mg PO Q12H #14 tab 01/13/19 cloNIDine [Catapres-Tts 2] 0.2 mg TD Q7D@1700 #14 patch.tdwk 01/13/19
[2019-01-13 11:24] VITALS: BP 148/88
== END 2019-01-13 11:30 | DRG 177 ==
LOC: ER 17:09 → MS 19:31 → SCU 01-10 20:47 → MS 01-11 13:22
PROVIDERS: ADMIT Internal Medicine; ATTEND Family Medicine
DX: F20.9 Schizophrenia, unspecified; J96.01 Acute respiratory failure with hypoxia; G47.33 Obstructive sleep apnea (adult) (pediatric); F17.210 Nicotine dependence, cigarettes, uncomplicated; I16.0 Hypertensive urgency; Z68.36 Body mass index [BMI] 36.0-36.9, adult; Z22.322 Carrier or suspected carrier of Methicillin resistant Staphylococcus aureus; R41.82 Altered mental status, unspecified; Z79.84 Long term (current) use of oral hypoglycemic drugs; E11.22 Type 2 diabetes mellitus with diabetic chronic kidney disease; J69.0 Pneumonitis due to inhalation of food and vomit; E78.5 Hyperlipidemia, unspecified; I12.9 Hypertensive chronic kidney disease with stage 1 through stage 4 chronic kidney disease, or unspecified chronic kidney disease; E66.01 Morbid (severe) obesity due to excess calories; N18.3 Chronic kidney disease, stage 3 (moderate); J41.0 Simple chronic bronchitis
CPT/HCPCS: 36415; 36600; 70450; 70551; 71010; 71020; 71045; 71046; 71250; 74230; 80048; 80053; 81001; 82803; 83605; 85007; 85025; 85610; 85652; 85730; 87040; 87081; 87086; 92526; 92610; 92611; 93005; 94640; 94660; 94664; 96365; 96375; 97110; 97116; 97162; 97165; 97535; 99285